=== PATIENT | male | born 1975 | race African-American/Black ===

== ENCOUNTER 2017-03-07 21:22 | Emergency (ER) | payer OTHER ==
[2017-03-07] MEDS ORDERED: predniSONE 20 MG TABLET PO STA (21:45)
[2017-03-07] MEDS ORDERED: KETOROLAC 60 MG/2 ML VIAL IM STA (21:45)
[2017-03-07] MEDS ORDERED: oxyCODONE/ACET 5/325 Prepack 4 PO STA (21:45)
--- NOTE | 2017-03-07 21:47 | ED Physician Documentation ---
PD HPI UPPER EXT INJURY - Stated complaint Stated Complaint: L ARM PAIN - Chief complaint Chief Complaint: Ext Problem - History obtained from History obtained from: Patient - Additonal information Additional information: 42-year-old gentleman with history of mild intermittent rheumatoid arthritis presents with atraumatic left shoulder pain of 2 days duration. It is similar to previous exacerbation of rheumatoid arthritis. He has severe pain with range of motion. There is no fever associated with this. He does feel like his hand and wrist are swollen as well. Review of Systems Constitutional: denies: Fever, Chills, Fatigue, Weight Loss Respiratory: denies: Dyspnea, Cough GI: denies: Abdominal Pain PD PAST MEDICAL HISTORY - Past Medical History Past Medical History: No Musculoskeletal: Osteoarthritis, Rheumatoid arthritis, Gout - Past Surgical History Past Surgical History: Yes Ortho: Knee replacement - Present Medications Home Medications: Ambulatory Orders Medication Instructions Recorded Confirmed Ibuprofen 600 mg PO Q6HR PRN #30 tablet 08/08/15 03/07/17 - Allergies Allergies/Adverse Reactions: Allergies Allergy/AdvReac Type Severity Reaction Status Date / Time No Known Drug Allergies Allergy Verified 03/07/17 21:29 - Social History Does the pt smoke?: No Smoking Status: Never smoker Does the pt drink ETOH?: No Does the pt have substance abuse?: No - Immunizations Immunizations are current?: Yes - POLST Patient has POLST: No PD ED PE NORMAL - Vitals Vital signs reviewed: Yes - General General: Alert and oriented X 3, No acute distress - Neck Neck: Supple, no meningeal sign, No bony TTP - Extremities Extremities: Other (Diffuse tenderness To the left shoulder joint without warmth. No overlying skin changes or redness. He can internally and externally rotate a few degrees without pain but cannot really abduct at all. I do not really see any swelling to the arm per se and he has no tenderness of the hand or wrist.) - Neuro Neuro: Alert and oriented X 3, Normal speech - Psych Psych: Normal mood, Normal affect Results - Vitals Vitals: Vital Signs - 24 hr 03/07/17 21:30 Temperature 36.6 C Heart Rate 98 Respiratory 18 Rate Blood Pressure 176/98 H O2 Saturation 98 Oxygen O2 Source Room air PD MEDICAL DECISION MAKING - ED course ED course: 42-year-old gentleman with an exacerbation of chronic arthritis, there is no evidence of infection and there was no trauma. He requests a Toradol shot along with prednisone taper and some pain medication. Departure - Departure Disposition: 01 Home, Self Care Clinical Impression: Shoulder pain, left Qualifiers: Chronicity: acute Qualified Code(s): M25.512 - Pain in left shoulder Condition: Good Record reviewed to determine appropriate education?: Yes Instructions: Arthritis Rheumatoid Comments: Call your doctor to arrange a follow-up appointment, make the next available appointment. In the interim, return anytime if worse or if new symptoms develop. Your blood pressure was elevated today on check into the emergency department. This does not mean that you have hypertension, it is a common phenomenon to come to the emergency department and have elevated blood pressure. I recommend that she see your primary care physician within the week to have it rechecked when you are feeling better.
[2017-03-07] MEDS ORDERED: KETOROLAC 60 MG/2 ML VIAL ONE (21:54)
[2017-03-07] MEDS ORDERED: oxyCODONE/ACET 5/325 Prepack 4 PO ONE (21:54)
[2017-03-07] MEDS ORDERED: predniSONE 20 MG TABLET ONE (21:54)
[2017-03-07 22:21] VITALS: BP 158/98
== END 2017-03-07 22:21 | disposition home or self-care (01) ==
LOC: ED 21:22
DX: M25.512 Pain in left shoulder (principal); R03.0 Elevated blood-pressure reading, without diagnosis of hypertension; M06.9 Rheumatoid arthritis, unspecified; Z96.659 Presence of unspecified artificial knee joint
CPT/HCPCS: 96372; 99283; J7512

== ENCOUNTER 2017-05-22 06:00 | Emergency (ER) | payer OTHER ==
--- NOTE | 2017-05-22 07:21 | Ultrasound Preliminary Report ---
Exam: US DUPLEX EXT VEINS LEFT IMPRESSION: No evidence for deep venous thrombosis. [facility] SITE ID: [id number]
--- NOTE | 2017-05-22 07:24 | Ultrasound Report ---
EXAM: LEFT LOWER EXTREMITY VENOUS ULTRASOUND EXAM DATE: 05/22/2017 07:13 AM. CLINICAL HISTORY: Left calf pain. COMPARISON: None. TECHNIQUE: Real-time sonographic vascular imaging was performed by the rubber boots and shoes repairer through the lower extremity utilizing both color-flow and Doppler spectral analysis. Multiple outbound sales representative static polina ges were saved for review. FINDINGS: Common Femoral Vein (CFV): Normal. CFV-GSV Junction: Normal. Profunda Femoral Vein (PFV): Normal. Femoral Vein (FV) Prox: Normal. Femoral Vein (FV) Mid: Normal. Femoral Vein (FV) Dist: Normal. Popliteal Vein: Normal. Posterior Tibial Veins: Normal. Peroneal Veins: Normal. Contralateral Side CFV: Normal. Other: None. IMPRESSION: No evidence for deep venous thrombosis. [facility] Referring Provider Line: [phone] SITE ID: [id number]
--- NOTE | 2017-05-22 07:25 | XRAY Preliminary Report ---
Exam: XR ANKLE 3 VIEW RT IMPRESSION: 1. Heel spurs. 2. DJD. [facility] SITE ID: [id number]
--- NOTE | 2017-05-22 07:27 | XRAY Report ---
EXAM: RIGHT ANKLE RADIOGRAPHY EXAM DATE: 05/22/2017 07:14 AM. CLINICAL HISTORY: Right ankle pain. COMPARISON: None. TECHNIQUE: 3 views. FINDINGS: Bones: Achilles tendon heel spur. Plantar heel spur. Loose bodies at the tibial talar joint. No acute fractures or bone lesions. Joints: Joint space narrowing along the posterior talocalcaneal joint. Joint space narrowing along th e distal aspect of the medial and lateral joint space. Accessory ossicles along the medial lateral ma lleolus. Osteophyte along the talonavicular and navicular cuneiform joints. Soft Tissues: soft tissue swelling. IMPRESSION: 1. Heel spurs. 2. DJD. [facility] Referring Provider Line: [phone] SITE ID: [id number]
[2017-05-22] MEDS ORDERED: HYDROcod/ACETAM 5/325 MG TABLET PO STA (07:29)
--- NOTE | 2017-05-22 07:29 | ED Physician Documentation ---
PD HPI LOWER EXT INJURY - Stated complaint Stated Complaint: BILAT LEG/ANKLE PX - Chief complaint Chief Complaint: Ext Problem - History obtained from History obtained from: Patient - History of Present Illness PD HPI LOW EXT INJURY LOCATION: Left, Lower leg Type of injury: Other (No specific injury.) Timing - onset: How many days ago (Onset was 5 or 6 days ago.) Timing - details: Gradual onset, Waxing and waning Worsened by: Other (Weight bearing.) - Additional information Additional information: The patient is a 42-year-old male of large stature, who presents with left lower leg pain that started 5 or 6 days ago and has been waxing and waning since that time. He also complains of right ankle pain that started last night , and is worse with weightbearing. He denies any recent injury. He has noticed slight swelling in his left lower leg. He denies fever or shortness of breath. He has a history of osteoarthritis and rheumatoid arthritis, as well as gout. He has been using Advil without relief. Review of Systems Constitutional: denies: Fever Nose: denies: Congestion Throat: denies: Sore throat Cardiac: denies: Chest pain / pressure Respiratory: denies: Dyspnea, Cough GI: denies: Abdominal Pain, Nausea, Vomiting : denies: Dysuria Skin: denies: Rash Musculoskeletal: reports: Extremity pain. denies: Neck pain, Back pain Neurologic: denies: Focal weakness, Numbness, Headache PD PAST MEDICAL HISTORY - Past Medical History Cardiovascular: None Respiratory: None Neuro: None Endocrine/Autoimmune: None Musculoskeletal: Osteoarthritis, Rheumatoid arthritis, Gout - Past Surgical History Past Surgical History: Yes Ortho: Knee replacement Cardiovascular: Vascular surgery - Present Medications Home Medications: Ambulatory Orders Medication Instructions Recorded Confirmed Ibuprofen 600 mg PO Q6HR PRN #30 tablet 08/08/15 05/22/17 Naproxen [Naprosyn] 500 mg PO BID PRN #30 tablet 05/22/17 - Allergies Allergies/Adverse Reactions: Allergies Allergy/AdvReac Type Severity Reaction Status Date / Time No Known Drug Allergies Allergy Verified 05/22/17 06:06 - Social History Does the pt smoke?: No Smoking Status: Never smoker Does the pt drink ETOH?: No Does the pt have substance abuse?: No - Immunizations Immunizations are current?: Yes - POLST Patient has POLST: No PD ED PE NORMAL - Vitals Vital signs reviewed: Yes (initially hypertensive.) - General General: Alert and oriented X 3, Well developed/nourished - HEENT HEENT: Atraumatic, Pharynx benign - Neck Neck: No adenopathy, No JVD - Cardiac Cardiac: RRR, No murmur - Respiratory Respiratory: No respiratory distress, Clear bilaterally - Abdomen Abdomen: Normal bowel sounds, Soft, Non tender - Back Back: No CVA TTP - Derm Derm: No rash - Extremities Extremities: Other - Neuro Neuro: Alert and oriented X 3, No motor deficit, No sensory deficit Results - Vitals Vitals: Oxygen O2 Source Room air - Rads (name of study) Venous Duplex Left LE Radiology: Prelim report reviewed, See rad report (No evidence for DVT.) Right ankle Radiology: Prelim report reviewed, EMP read contemporaneously, See rad report ( Heel spurs. DJD.) PD MEDICAL DECISION MAKING - ED course Complexity details: reviewed results, re-evaluated patient, considered differential, d/w patient, d/w family ED course: The patient's lower extremity pain is most likely caused by his arthritis. The change in weather may be affecting the inflammatory condition. There is no evidence of bony abnormality on x-ray examination of his right ankle. There is no DVT detected on venous duplex scan of the left lower extremity. Treatment in the emergency department included administration of Vicodin one tablet orally. He is being discharged with prescription for Naprosyn. I discussed with him and his the results of the imaging studies, symptomatic treatment and outpatient follow-up, as well as potentially worrisome signs or symptoms that should prompt reevaluation in the emergency department Departure - Departure Disposition: 01 Home, Self Care Clinical Impression: History of inflammatory arthritis Pain of lower extremity Qualifiers: Laterality: bilateral Qualified Code(s): M79.604 - Pain in right leg Condition: Stable Instructions: ED Arthritis Rheumatoid Follow-Up: Vernon Last MD [Primary Care Provider] - Prescriptions: Naproxen [Naprosyn] 500 mg PO BID PRN #30 tablet PRN Reason: Pain Comments: Keep your legs elevated as much of the time as possible. You can use Naprosyn twice daily as prescribed if needed for pain. Let pain be your guide to activity level. Follow up with your primary physician within 1-2 weeks. Call to schedule an appointment. Return to the emergency department if you develop increasing pain or swelling in your legs, or otherwise worsening symptoms. Discharge Date/Time: 05/22/17 07:50
[2017-05-22] MEDS ORDERED: HYDROcod/ACETAM 5/325 MG TABLET ONE (07:43)
[2017-05-22 07:51] VITALS: BP 171/103
== END 2017-05-22 07:50 | disposition home or self-care (01) ==
LOC: ED 06:00
DX: M25.571 Pain in right ankle and joints of right foot (principal); M79.662 Pain in left lower leg; M06.9 Rheumatoid arthritis, unspecified; M19.90 Unspecified osteoarthritis, unspecified site; M10.9 Gout, unspecified
CPT/HCPCS: 73610; 93971; 99283; A9270

== ENCOUNTER 2017-05-31 05:54 | Emergency (ER) | payer OTHER ==
[2017-05-31 06:07] VITALS: BP 160/107
--- NOTE | 2017-05-31 06:15 | ED Physician Documentation ---
PD HPI ABD PAIN - Stated complaint Stated Complaint: ABDOMINAL PAIN - Chief complaint Chief Complaint: Abd Pain - History obtained from History obtained from: Patient - History of Present Illness Timing - onset: How many days ago (several days) Timing - duration: Days Timing - details: Gradual onset, Waxing and waning Quality: Aching, Dull, Pain Location: Periumbilical Radiation: No: Chest, Lower back, Left flank, Right flank Improved by: Laying still. No: Eating, BM Worsened by: Moving, Palpation. No: Eating, Breathing Associated symptoms: No: Fever, Nausea, Vomiting, Diarrhea, Constipation, Melena Similar symptoms before: Has not had sx before Recently seen: Emergency Dept (he had been having lower leg pain and seen in ED with U/S and labs; no DVT and was Dx with likely arthritis. He felt better after just couple days of Naproxen and minimal pain meds. No recent pains in legs.) Review of Systems Constitutional: denies: Fever, Chills Respiratory: denies: Cough GI: reports: Abdominal Pain. denies: Nausea, Vomiting, Constipation, Diarrhea, Bloody / black stool : denies: Dysuria, Frequency Skin: denies: Rash, Lesions PD PAST MEDICAL HISTORY - Past Medical History Past Medical History: Yes Cardiovascular: None Respiratory: None Neuro: None Endocrine/Autoimmune: None Musculoskeletal: Osteoarthritis, Rheumatoid arthritis, Gout - Past Surgical History Past Surgical History: Yes Ortho: Knee replacement Cardiovascular: Vascular surgery - Present Medications Home Medications: Ambulatory Orders Medication Instructions Recorded Confirmed Ibuprofen 600 mg PO Q6HR PRN #30 tablet 08/08/15 05/22/17 Naproxen [Naprosyn] 500 mg PO BID PRN #30 tablet 05/22/17 - Allergies Allergies/Adverse Reactions: Allergies Allergy/AdvReac Type Severity Reaction Status Date / Time No Known Drug Allergies Allergy Verified 05/31/17 06:07 - Social History Does the pt smoke?: No Smoking Status: Never smoker Does the pt drink ETOH?: No Does the pt have substance abuse?: No - Immunizations Immunizations are current?: Yes - POLST Patient has POLST: No PD ED PE NORMAL - Vitals Vital signs reviewed: Yes - General General: Alert and oriented X 3, No acute distress, Well developed/nourished, Other (very large stature.) - Cardiac Cardiac: RRR, No murmur - Respiratory Respiratory: Clear bilaterally - Abdomen Abdomen: Normal bowel sounds, Non distended, No organomegaly, Other (obese; has tenderness at umbilicus with palpable hernia. Pushing the hernia augments the pain, but the hernia is soft and reducible, also less prominent with him lying down. So easily reducible. ) - Male Male : Deferred - Rectal Rectal: Deferred - Back Back: No CVA TTP - Derm Derm: Normal color, No rash Results - Vitals Vitals: Vital Signs - 24 hr 05/31/17 05:58 Temperature 36.1 C L Heart Rate 92 Respiratory 18 Rate Blood Pressure 160/107 H O2 Saturation 97 Oxygen O2 Source Room air PD MEDICAL DECISION MAKING - ED course Complexity details: considered differential (having umbilical hernia tenderness. No findings/symptoms to suggest need for imaging/testing at this time. Refer for surgical clinic outpatient. Stool softener. Talked to him about symptoms of incarcerated hernia and when to return promptly. ), d/w patient Departure - Departure Disposition: 01 Home, Self Care Clinical Impression: Umbilical pain Umbilical hernia Qualifiers: Obstruction and gangrene presence: without obstruction or gangrene Qualified Code(s): K42.9 - Umbilical hernia without obstruction or gangrene Condition: Stable Record reviewed to determine appropriate education?: Yes Instructions: ED Hernia Inguinal Follow-Up: Vernon Last MD [Primary Care Provider] - Shawn Garcia MD [Provider Admit Priv/Credential] - Comments: Drink lots of fluids. Naproxen or Tylenol if needed for pains. Daily stool softener to ensure less pressure in the abdomen. Avoid heavy lifting. Follow- up with surgery to discuss potential repair of the hernia. Return if that has worsened pain, is hard and tender, has associated nausea or vomiting or bloody stool. Instructions given refer to inguinal hernia but the reasons for returning and cautions are the same and we just do not have particular instructions for umbilical hernia. Discharge Date/Time: 05/31/17 06:35
== END 2017-05-31 06:35 | disposition home or self-care (01) ==
LOC: ED 05:54
DX: K42.9 Umbilical hernia without obstruction or gangrene (principal); Z96.659 Presence of unspecified artificial knee joint
CPT/HCPCS: 99283

== ENCOUNTER 2017-07-16 07:08 | Emergency (ER) | payer OTHER ==
[2017-07-16] MEDS ORDERED: DEXAMETHASONE 10 MG/ML VIAL PO STA (07:45)
[2017-07-16] MEDS ORDERED: KETOROLAC 60 MG/2 ML VIAL IM STA (07:45)
--- NOTE | 2017-07-16 07:47 | ED Physician Documentation ---
History of Present Illness - Stated complaint Stated Complaint: LEFT WRIST SWOLLEN - Chief complaint Chief Complaint: Ext Problem - History obtained from History obtained from: Patient, Family - History of Present Illness Timing: How many days ago (2) - Additonal information Additional information: 42-year-old male has had spontaneous swelling of his left wrist with sharp exquisite pain. He has had similar episodes previously in an ankle and in the thumb. These have lasted a short period of time and resolved. He did have exacerbation of this pain in his left wrist 10 days ago that lasted about 3 days. He has had a recurrence of this beginning 2 days ago. He is in the process of being evaluated for rheumatoid arthritis. He has not been diagnosed with gout previously. He has involvement of a single joint with each of these prior episodes. He does not know of any injury to the wrist prior to the onset of symptoms. He has not been able to sleep. Review of Systems Constitutional: denies: Fever, Chills, Myalgias Eyes: denies: Decreased vision Ears: denies: Ear pain Nose: denies: Congestion Throat: denies: Sore throat Cardiac: denies: Chest pain / pressure Respiratory: denies: Dyspnea, Cough GI: denies: Nausea, Vomiting : denies: Dysuria Skin: denies: Rash Musculoskeletal: reports: Extremity pain, Joint pain, Joint swelling. denies: Neck pain, Back pain Neurologic: denies: Generalized weakness, Focal weakness, Numbness PD PAST MEDICAL HISTORY - Past Medical History Past Medical History: Yes Cardiovascular: Hypertension Respiratory: None Neuro: None Endocrine/Autoimmune: None Musculoskeletal: Osteoarthritis - Past Surgical History Past Surgical History: Yes Ortho: Knee replacement Cardiovascular: Vascular surgery - Present Medications Home Medications: Ambulatory Orders Medication Instructions Recorded Confirmed HYDROcod/ACETAM 5/325 [[place] 5/325] 1 - 2 ea PO Q6H PRN #15 tablet 07/16/17 Indomethacin 25 mg PO Q6HR PRN #30 capsule 07/16/17 Lisinopril/Hydrochlorothiazide 1 tab ORAL DAILY 07/16/17 07/16/17 [Lisinopril-Hctz 20-25 mg Tab] - Allergies Allergies/Adverse Reactions: Allergies Allergy/AdvReac Type Severity Reaction Status Date / Time No Known Drug Allergies Allergy Verified 07/16/17 07:17 - Social History Does the pt smoke?: No Smoking Status: Never smoker Does the pt drink ETOH?: No Does the pt have substance abuse?: No - Immunizations Immunizations are current?: Yes - POLST Patient has POLST: No PD ED PE NORMAL - Vitals Vital signs reviewed: Yes (Hypertensive) - General General: Alert and oriented X 3, No acute distress, Well developed/nourished - HEENT HEENT: Atraumatic, PERRL, EOMI - Respiratory Respiratory: No respiratory distress - Derm Derm: Normal color, Warm and dry, No rash - Extremities Extremities: Other (There is swelling to the left wrist specifically over the dorsum of the wrist joint itself. There is no pain to movement of the thumb with isolation of the thumb or to movement of the fingers with isolation of the hand. Remainder of the patient's joints do not appear affected.) - Neuro Neuro: Alert and oriented X 3, No motor deficit, No sensory deficit, Normal speech Eye Opening: Spontaneous Motor: Obeys Commands Verbal: Oriented GCS Score: 15 - Psych Psych: Normal mood, Normal affect Results - Vitals Vitals: Vital Signs - 24 hr 07/16/17 07:13 Temperature 36 C L Heart Rate 69 Respiratory 18 Rate Blood Pressure 179/97 H O2 Saturation 97 Oxygen O2 Source Room air PD MEDICAL DECISION MAKING - ED course Complexity details: reviewed old records, reviewed results, re-evaluated patient , considered differential, d/w patient ED course: 42-year-old male with a recurrent swelling and pain consistent with acute gouty arthritis. In review of the patient's record he has had similar episodes previously.He has been diagnosed with gout previously. The patient is on hydrochlorothiazide. Departure - Departure Disposition: 01 Home, Self Care Clinical Impression: Gout Qualifiers: Gout site: wrist Gout etiology: drug-induced Chronicity: acute Laterality: left Qualified Code(s): M10.232 - Drug-induced gout, left wrist Condition: Stable Instructions: ED Arthritis Gout, ED Diet Gout Follow-Up: Vernon Last MD [Primary Care Provider] - Prescriptions: Indomethacin 25 mg PO Q6HR PRN #30 capsule PRN Reason: Pain HYDROcod/ACETAM 5/325 [[place] 5/325] 1 - 2 ea PO Q6H PRN #15 tablet PRN Reason: Pain Comments: Today in the emergency department your blood pressure was elevated. I do see you are on some hydrochlorothiazide with by lisinopril. This medicine can exacerbate gout. Talk to Dr. Last about changing this medicine.
[2017-07-16] MEDS ORDERED: CHERRY SYRUP 10 ML UDC PO ONE (07:57)
[2017-07-16 08:10] VITALS: BP 162/98
== END 2017-07-16 08:10 | disposition home or self-care (01) ==
LOC: ED 07:08
DX: M10.2 Drug-induced gout (principal); I10 Essential (primary) hypertension; M19.90 Unspecified osteoarthritis, unspecified site
CPT/HCPCS: 96372; 99283; A9270

== ENCOUNTER 2019-06-09 05:31 | Inpatient (IN) | payer OTHER ==
[2019-06-09] MEDS ORDERED: SODIUM CHLORIDE 0.9% 1,000 ML IV STA (05:54)
--- NOTE | 2019-06-09 06:02 | ED Physician Documentation ---
History of Present Illness - Stated complaint Stated Complaint: WEAK/THIRSTY/MALE - Chief complaint Chief Complaint: Neuro - History obtained from History obtained from: Patient - History of Present Illness Timing: How many weeks ago (1) Pain level max: 0 Pain level now: 0 Improved by: nothing Worsened by: no apparent exacerbating factors Associated symptoms: polyuria, polydipsia, blurry vision, generalized weakness - Additonal information Additional information: c/o 1 week of gradual onset, gradually worsening polyuria, polydipsia. He was evaluated at [facility] 4 days ago and had blood work but has not heard back from them regarding the results. Presents to ED due to ongoing and worsening symptoms, now associated with blurry vision, nausea, generalized weakness Review of Systems Constitutional: reports: Myalgias, Fatigue. denies: Fever, Chills, Sweats Eyes: reports: Other (bilateral blurred vision). denies: Loss of vision, Photophobia Ears: reports: Reviewed and negative Nose: reports: Reviewed and negative Throat: reports: Reviewed and negative Cardiac: reports: Reviewed and negative Respiratory: reports: Reviewed and negative GI: reports: Nausea. denies: Abdominal Pain, Vomiting, Constipation, Diarrhea : reports: Frequency. denies: Dysuria Skin: reports: Reviewed and negative Musculoskeletal: reports: Reviewed and negative Neurologic: reports: Generalized weakness. denies: Focal weakness, Numbness, Headache Endocrine: reports: Polydypsia, Polyuria PD PAST MEDICAL HISTORY - Past Medical History Cardiovascular: Hypertension Respiratory: None Endocrine/Autoimmune: None Musculoskeletal: Osteoarthritis - Past Surgical History Past Surgical History: Yes Ortho: Knee replacement Cardiovascular: Vascular surgery - Present Medications Home Medications: Ambulatory Orders Medication Instructions Recorded Confirmed HYDROcod/ACETAM 5/325 [[place] 5/325] 1 - 2 ea PO Q6H PRN #15 tablet 07/16/17 Indomethacin 25 mg PO Q6HR PRN #30 capsule 07/16/17 Lisinopril/Hydrochlorothiazide 1 tab ORAL DAILY 07/16/17 07/16/17 [Lisinopril-Hctz 20-25 mg Tab] - Allergies Allergies/Adverse Reactions: Allergies Allergy/AdvReac Type Severity Reaction Status Date / Time No Known Drug Allergies Allergy Verified 06/09/19 06:00 - Social History Does the pt smoke?: No Smoking Status: Never smoker Does the pt drink ETOH?: No Does the pt have substance abuse?: No - Immunizations Immunizations are current?: Yes - POLST Patient has POLST: No PD ED PE NORMAL - Vitals Vital signs reviewed: Yes - General General: Alert and oriented X 3, No acute distress, Well developed/nourished - HEENT HEENT: Other (dry mucous membranes) - Neck Neck: Supple, no meningeal sign - Cardiac Cardiac: RRR, No murmur - Respiratory Respiratory: No respiratory distress, Clear bilaterally - Abdomen Abdomen: Soft, Non tender, Non distended - Back Back: No CVA TTP - Derm Derm: Normal color, Warm and dry - Extremities Extremities: No edema - Neuro Neuro: Alert and oriented X 3, 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, Normal speech Results - Vitals Vitals: Vital Signs - 24 hr 06/09/19 06/09/19 06/09/19 05:40 06:27 07:33 Temperature 35.0 C L Heart Rate 102 H 99 94 Respiratory 18 20 20 Rate Blood Pressure 135/75 H 142/79 H 122/94 H O2 Saturation 98 99 96 06/09/19 08:00 Temperature 36.3 C L Heart Rate 100 Respiratory 21 Rate Blood Pressure 172/104 H O2 Saturation 98 Oxygen O2 Source Room air - Labs Labs: Laboratory Tests 06/09/19 06/09/19 06/09/19 06:35 07:25 07:25 WBC 5.8 RBC 5.10 Hgb 14.9 Hct 44.4 MCV 87.1 MCH 29.2 MCHC 33.6 RDW 13.0 Plt Count 281 MPV 12.2 H Neut # (Auto) 3.9 Lymph # (Auto) 1.4 L Alfalfa # (Auto) 0.4 Eos # (Auto) 0.0 Baso # (Auto) 0.0 Absolute Nucleated RBC 0.00 Nucleated RBC % 0.0 VBG pH VBG pCO2 VBG pO2 VBG HCO3 VBG Total CO2 VBG O2 Saturation VBG Base Excess Sodium 121 L Potassium 5.9 H Chloride 82 L Carbon Dioxide 15 L Anion Gap 24.0 H BUN 54 H Creatinine 2.0 H Estimated GFR (MDRD) 44 L Glucose 982 H* Glycated Hemoglobin Estim Average Glucose Calcium 10.2 Total Bilirubin 1.8 H AST 16 ALT 42 Alkaline Phosphatase 79 Total Protein 8.9 H Albumin 4.8 Globulin 4.1 Albumin/Globulin Ratio 1.2 Lipase 56 H Urine Color YELLOW Urine Clarity CLEAR Urine pH 5.5 Ur Specific [place] <=1.005 Urine Protein NEGATIVE Urine Glucose (UA) >=1000 H Urine Ketones 40 H Urine Occult Blood NEGATIVE Urine Nitrite NEGATIVE Urine Bilirubin NEGATIVE Urine Urobilinogen 0.2 (NORMAL) Ur Leukocyte Esterase NEGATIVE Ur Microscopic Review NOT INDICATED Urine Culture Comments NOT INDICATED Serum Ketones SMALL H 06/09/19 06/09/19 07:25 08:00 WBC RBC Hgb Hct MCV MCH MCHC RDW Plt Count MPV Neut # (Auto) Lymph # (Auto) Alfalfa # (Auto) Eos # (Auto) Baso # (Auto) Absolute Nucleated RBC Nucleated RBC % VBG pH 7.256 L VBG pCO2 32.9 L VBG pO2 42.2 VBG HCO3 14.3 L VBG Total CO2 15.3 L VBG O2 Saturation 74.8 VBG Base Excess -11.6 L Sodium Potassium Chloride Carbon Dioxide Anion Gap BUN Creatinine Estimated GFR (MDRD) Glucose Glycated Hemoglobin 12.7 H Estim Average Glucose 318 H Calcium Total Bilirubin AST ALT Alkaline Phosphatase Total Protein Albumin Globulin Albumin/Globulin Ratio Lipase Urine Color Urine Clarity Urine pH Ur Specific [place] Urine Protein Urine Glucose (UA) Urine Ketones Urine Occult Blood Urine Nitrite Urine Bilirubin Urine Urobilinogen Ur Leukocyte Esterase Ur Microscopic Review Urine Culture Comments Serum Ketones - Rads (name of study) chest xray Radiology: Prelim report reviewed, See rad report Procedures - Central Line Central Line Preparation: Consent Obtained, Ultrasound used, Sterile prep and drape Central line location: Right IJ Central line type: Triple lumen Central line aftercare: Chlorhexidine disc placed, Secured, Placement confirmed, No pneumothorax, No complications, Pt tolerated well PD MEDICAL DECISION MAKING - ED course Complexity details: reviewed results, re-evaluated patient, considered differential, d/w patient, d/w family Departure - Departure Disposition: 66 [facility] DC/Xfer Clinical Impression: Diabetic ketoacidosis Qualifiers: Diabetes mellitus type: other specified (including RADHA) Diabetes mellitus complication detail: without coma Qualified Code(s): E13.10 - Other specified diabetes mellitus with ketoacidosis without coma Condition: Stable
[2019-06-09 06:53] LABS: BILIRUBIN,URINE NEGATIVE (NEGATIVE); CLARITY,URINE CLEAR (CLEAR); GLUCOSE, URINE (UA) >=1000 mg/dL (NEGATIVE); KETONES,URINE (UA) 40 mg/dL (NEGATIVE); LEUKOCYTE ESTERASE, URINE NEGATIVE (NEGATIVE); NITRITE,URINE NEGATIVE (NEGATIVE); OCCULT BLOOD,URINE NEGATIVE (NEGATIVE); PH,URINE 5.5 PH (5.0-7.5); PROTEIN,URINE NEGATIVE (NEGATIVE); UROBILINOGEN,URINE 0.2 (NORMAL) E.U./dL (NORMAL)
[2019-06-09 07:40] LABS: BASOPHILS % (AUTO) 0.2 %; EOSINOPHILS % (AUTO) 0.3 %; HGB - HEMOGLOBIN 14.9 g/dL (14.0-18.0); LYMPHOCYTES # (AUTO) 1.4 10^3/uL (1.5-3.5); LYMPHOCYTES % (AUTO) 24.3 %; MEAN CORPUSCULAR HEMOGLOBIN 29.2 pg (27.0-31.0); MEAN CORPUSCULAR HGB CONC 33.6 g/dL (32.0-36.0); MEAN CORPUSCULAR VOLUME 87.1 fL (80.0-94.0); MEAN PLATELET VOLUME 12.2 fL (7.4-11.4); MONOCYTES # (AUTO) 0.4 10^3/uL (0.0-1.0); MONOCYTES % (AUTO) 6.4 %; NEUTROPHILS # (AUTO) 3.9 10^3/uL (1.5-6.6); NEUTROPHILS % (AUTO) 68.3 %; PLT - PLATELET COUNT 281 10^3/uL (130-450); WHITE BLOOD COUNT 5.8 x10^3/uL (4.8-10.8)
--- NOTE | 2019-06-09 07:55 | XRAY Report ---
Reason: central line placement Procedure Date: 06/09/2019 Accession Number: [id number] / [id number] Procedure: XR - Chest for Line Placement CPT Code: Final Report FULL RESULT: EXAM: CHEST RADIOGRAPHY EXAM DATE: 06/09/2019 07:45 AM. CLINICAL HISTORY: Central line placement. COMPARISON: None. TECHNIQUE: 1 view. FINDINGS: Support apparatus: Right IJ approach central venous catheter with tip over the upper SVC approximately 6.5 cm above the expected location of the superior cavoatrial junction. Lungs/Pleura: No focal opacities evident. No pleural effusion. No visible pneumothorax. Mediastinum: Within exam limitations, the cardiomediastinal contour is normal. Other: None. IMPRESSION: 1. Right IJ approach central venous catheter with tip over the upper SVC approximately 6.5 cm above the expected location of the superior cava atrial junction. Consider advancing. 2. No acute cardiopulmonary process. RADIA
[2019-06-09 07:56] LABS: KETONES, SERUM (ACETEST) SMALL (NEGATIVE)
[2019-06-09 08:08] LABS: VBG BASE EXCESS -11.6 mmol/L (-2 - +2); VBG PCO2 32.9 mmHg (41-51); VBG PH 7.256 (7.31-7.41); VBG PO2 42.2 mmHg (25-47); VBG TOTAL CO2 15.3 mmol/L (24-29)
[2019-06-09 08:19] LABS: ALBUMIN 4.8 g/dL (3.2-5.5); ALBUMIN/GLOBULIN RATIO 1.2 (1.0-2.2); ALKALINE PHOSPHATASE 79 IU/L (42-121); ALT ALANINE AMINOTRANSFERASE 42 IU/L (10-60); AST ASPARTATE AMINOTRANSFERASE 16 IU/L (10-42); BILIRUBIN,TOTAL 1.8 mg/dL (0.2-1.0); BUN - BLOOD UREA NITROGEN 54 mg/dL (6-20); CALCIUM 10.2 mg/dL (8.5-10.3); CARBON DIOXIDE - CO2 15 mmol/L (21-32); CHLORIDE 82 mmol/L (101-111); GFR - MDRD 44 (>89); LIPASE 56 U/L (22-51); SODIUM 121 mmol/L (135-145); TOTAL PROTEIN 8.9 g/dL (6.7-8.2)
[2019-06-09 08:21] LABS: GLUCOSE 982 mg/dL (70-100)
[2019-06-09] MEDS ORDERED: ONDANSETRON ODT 4 MG TABLET TL PRN (08:24)
[2019-06-09] MEDS ORDERED: ONDANSETRON 4 MG/2 ML VIAL IVP PRN (08:24)
[2019-06-09] MEDS ORDERED: oxyCODONE 5 MG TABLET PO PRN (08:24)
[2019-06-09] MEDS ORDERED: ACETAMINOPHEN 325 MG TABLET PO PRN (08:24)
[2019-06-09] MEDS ORDERED: INSULIN REGULAR HUMAN 100 UNIT/1 ML 10 ML MDV IVP STA (08:25)
[2019-06-09 08:40] LABS: HB2 TOTAL 14.9 g/dL; HEMOGLOBIN A1C 1.72 g/dL; HEMOGLOBIN A1C % 12.7 % (4.6-6.2)
[2019-06-09 09:20] LABS: CALCIUM 10.5 mg/dL (8.5-10.3); MAGNESIUM 3.1 mg/dL (1.7-2.8)
--- NOTE | 2019-06-09 09:26 | ED Physician Documentation ---
ED Addendum - Addendum Addendum: 06/09/19 09:26 Nursing staff notified me of critical results of potassium 6.0 and glucose 931. The patient's being admitted with DKA. I have ordered an EKG. 06/09/19 09:27 He was given 10 units of insulin IV. The patient Is already admitted to the medical service. We will communicate these results with them. 06/09/19 10:04 EKG: Sinus tachycardia, rate 101. Narrow QRS, t wave inversion II, III aVF. No peaked t waves.
[2019-06-09] MEDS: INSULIN REGULAR HUMAN 100 UNIT in SODIUM CHLORIDE 0.9% 100ML 99 ML IV SCH ×3 (09:32→20:19)
[2019-06-09 10:09] LABS: MAGNESIUM 3.5 mg/dL (1.7-2.8)
[2019-06-09] MEDS: SODIUM CHLORIDE 0.9% 1,000 ML IV SCH ×2 (10:53→18:13)
[2019-06-09 11:41] LABS: VBG PCO2 35.1 mmHg (41-51); VBG PH 7.272 (7.31-7.41); VBG PO2 35.2 mmHg (25-47); VBG TOTAL CO2 16.9 mmol/L (24-29)
[2019-06-09] MEDS: SODIUM CHLORIDE FLUSH 0.9% 10 ML SYRINGE IVP SCH ×3 (11:53→16:23)
[2019-06-09 11:56] LABS: CALCIUM 10.3 mg/dL (8.5-10.3); CREATININE 1.9 mg/dL (0.6-1.2); MAGNESIUM 3.4 mg/dL (1.7-2.8)
[2019-06-09] MEDS ORDERED: POTASSIUM CHLOR 10 MEQ/100 ML 10 MEQ/100 ML BAG IV ONE ×4 (12:12→21:35)
[2019-06-09] MEDS: SODIUM CHLORIDE FLUSH 0.9% 10 ML SYRINGE IVP PRN ×2 (12:40→21:27)
[2019-06-09] MEDS: ENOXAPARIN 40 MG/0.4 ML SYRINGE SUBQ SCH (12:53)
[2019-06-09 14:57] LABS: CALCIUM 9.8 mg/dL (8.5-10.3); CREATININE 1.9 mg/dL (0.6-1.2)
--- NOTE | 2019-06-09 16:14 | HISTORY & PHYSICAL EXAMINATION ---
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 He had gone to see his primary doctor on Monday regarding this. Labs were drawn and he has not heard anything back. His symptoms were continuing to worsen, and he began to develop weakness and blurred vision so he decided to come to the ED. On arrival, blood glucose was 982. A VBG was checked and resulted as follows: pH: 7.27, CO2: 35 and HCO3: 15.8. He also had an anion gap of 24, a sodium of 121 and a creatinine of 2. He was admitted for diabetic ketoacidosis from a new diagnosis of diabetes mellitus type 2. 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 Prakash's mother still lives in [place] (his hometown). He has never met his father and knows nothing about him. He does not have siblings that he is aware of. He does have one child who has asthma. 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 He and his met in [place], [place] before he was stationed in [facility] nd they moved to [place] in 2004. Together they have 4 children, 3 of which are adopted from his 's prior marriage. 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 - Substance History Use: Uses substance without health or social issues: NONE Abuse: Recurrent use of substance despite neg consequences: NONE Dependence: Experiences withdrawal or developed tolerances: NONE - POLST Patient has POLST: No POLST Status: Full Code Meds/Allgy - Home Medications Home Medications: Ambulatory Orders Medication Instructions Recorded Confirmed HYDROcod/ACETAM 5/325 [[place] 5/325] 1 - 2 ea PO Q6H PRN #15 tablet 07/16/17 Indomethacin 25 mg PO Q6HR PRN #30 capsule 07/16/17 Lisinopril/Hydrochlorothiazide 1 tab ORAL DAILY 07/16/17 07/16/17 [Lisinopril-Hctz 20-25 mg Tab] - Allergies Allergies/Adverse Reactions: Allergies Allergy/AdvReac Type Severity Reaction Status Date / Time No Known Drug Allergies Allergy Verified 06/09/19 06:00 Review of Systems - Constitutional Constitutional: reports: Fatigue, Weakness, Poor appetite. denies: Fever, Chills, Malaise, Diaphoresis, Night sweats, Weight gain - Eyes Eyes: reports: Blurred vision. denies: Pain, Irritation, Amaurosis, Spots in vision, Field loss, Vision loss, Dipolpia - Ears, Nose & Throat Ears, Nose & Throat: denies: Ear pain, Hearing loss, Hearing aids, Tinnitus, Vertigo, Nasal pain, Nasal discharge, Nosebleeds, Nasal obstruction, Nasal congestion, Postnasal drainage, Dentures, Sore throat, Hoarseness, Mouth lesions, Bleeding gums, Dental decay - Cardiovascular Cariovascular: reports: Lightheadedness (This morning in the ED). denies: Irregular heart rate, Palpitations, Chest pain, Edema, Exertional dyspnea, Decr. exercise tolerance, Orthopnea - Respiratory Respiratory: denies: Cough, Sputum production, Wheezing, Hemoptysis, Orthopnea, SOB at rest, SOB with exertion, Apnea, Stridor, Pleuritic pain - Gastrointestinal Gastrointestinal: reports: Abdominal pain (Worse yesterday. On and off today.), Nausea (On and off over the course of a week), Other (Obese abdomen). denies: Abdominal distention, Constipation, Diarrhea, Rectal bleeding, Black stools, Bloody stools, Vomiting, Bile emesis, Uri blood emesis, Coffee grounds emesis, Reflux/heartburn - Genitourinary Genitourinary: reports: Frequency, Other (Polydipsia). denies: Hematuria, Incontinence, Flank pain - Musculoskeletal Musculoskeletal: reports: Joint pain (OA). denies: Muscle pain, Back pain, Muscle aches, Stiffness, Limited range of motion, Muscle weakness - Integumentary Integumentary: denies: Rash, Pruritis, Lesions, Dryness, Lumps, Acne, Pigment changes, Nail changes, Hair changes - Neurological Neurological: reports: General weakness. denies: Focal weakness, Headache, Dizziness, Numbness, Memory problems, Pre-existing deficit, Abnormal gait, Seizures, Incoordination, Slurred speech - Psychiatric Psychiatric: denies: Depression, Anxiety, Suicidal, Delusions, Hallucinations, Homicidal - Endocrine Endocrine: reports: Polyuria, Polydypsia - Hematologic/Lymphatic Hematologic/Lymphatic: denies: Anemia, Bruising, Petechiae, Blood clots, Lymphadenopathy, Bleeding tendencies - All Other Systems All Other Systems: reports: Reviewed and negative Prior Level of Functionality: Prior to this, Mr. 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 Exam - Vital Signs Reviewed Vital Signs: Yes Vital Signs: Vital Signs x48h Temp Pulse Pulse Resp BP BP Pulse Ox 06/09/19 15:00 99 17 174/94 H 99 06/09/19 14:00 104 H 17 156/90 H 99 06/09/19 13:00 102 H 23 134/72 H 99 06/09/19 12:00 36.4 C L 105 H 19 134/73 H 95 06/09/19 11:00 108 H 18 97/70 98 06/09/19 10:45 36.4 C L 109 H 12 92/77 100 06/09/19 10:00 107 H 14 151/72 H 98 06/09/19 09:53 36.6 C 104 H 25 H 139/87 H 97 06/09/19 08:30 106 H 14 187/93 H 98 06/09/19 08:00 36.3 C L 100 21 172/104 H 98 - Physical Exam General Appearance: positive: No acute distress, Mild distress (Tachypneic (low 20s).), Lethargic, Other (6'5" black male, well nourished, well developed at 145Kg.) Eyes Bilateral: positive: Normal inspection, No lid inflammation, Conjunctivae nml, No scleral icterus ENT: positive: ENT inspection nml, Pharynx nml, Dry mucous membranes. negative: Purulent nasal drainage, Pharyngeal erythema, Oral lesions Neck: positive: Nml inspection, Thyroid nml, No JVD, Trachea midline. negative: Stiff neck, Kernig's sign, Carotid bruit, Swelling/bruising, Tracheal deviation Respiratory: positive: Chest non-tender, Breath sounds nml, Other (Mildly tachypneic) Cardiovascular: positive: No murmur, No gallop, Tachycardia. negative: JVD present, Systolic murmur, Diastolic murmur, Gallop/S3, Gallop/S4, Friction rub, Decreased pulse(s), Crepitus Peripheral Pulses: positive: 2+ Abdomen: positive: Non-tender, Nml bowel sounds, Other (Obese abdomen). negative: Tenderness, Guarding, Rebound Rectal: positive: Non-tender Back: positive: Nml inspection, CVA tenderness (R), CVA tenderness (L) Skin: positive: Color nml, No rash, Warm, Dry, Cyanosis. negative: Diaphoresis, Pallor, Skin rash, Decubitus, Laceration (cm), Puncture wound Extremities: positive: Non-tender, Full ROM, Nml appearance, No pedal edema. negative: Pedal edema, Calf tenderness, Joint swelling Neurologic/Psychiatric: positive: Oriented x3, CN's nml (2-12), Motor nml, Sensa tion nml, Depressed mood/affect (Pt seems to be withdrawn, but he has not bounced back yet so this could be a result of his current state). negative: Sensory loss, Facial droop, Slurred/abnml speech Conclusion/Plan - Problem List (1) Diabetic ketoacidosis Conclusion/Plan: Presented for blurred vision and weakness along with progressively worsening polydipsia and polyuria. Blood glucose on arrival was 982 > 704 > 537. His VBG resulted as follows: pH: 7.27, pCO2: 35.1, HCO3: 15.8. Was started on treatment for DKA. Checking CMP Q4h: anion gap 24 > 22 > 19, sodium 121 > 130 > 129, potassium 5.9 > 4.5 > 4.3. An EKG was checked because of hyperkalemia and showed sinus tach, R axis deviation and borderline ST elevation. His corrected sodium is now 136 and K is WNL . Will continue to follow DKA protocol. -Follow CMP Q4H until stable. -Neuro checks -Remain NPO (can drink water, sugar free beverages, ice chips meds) until off of insulin gtt Qualifiers: Diabetes mellitus type: type 2 Diabetes mellitus complication detail: without coma Qualified Code(s): E11.10 - Type 2 diabetes mellitus with ketoacidosis without coma (2) Newly diagnosed diabetes Conclusion/Plan: AIC on admit was 12.7%. His mother has DM II as well. His was hoping that he would be able to eventually take pills to control his sugar, but given his obesity along with such a high A1C, he is unfortunately not a candidate. His feels overwhelmed about the new diagnosis, but the pt doesn't seemed to be phased by this. Reassured both the patient and the that they will receive diabetic education before discharging. -CMP Q4H -Transition to short- and long- term injections once stable and off gtt -Diabetic education (3) Acute kidney injury Conclusion/Plan: Secondary to dehydration and DKA. BUN/creatinine: 54/2 > 51/1.9 > 5.1/1.9. Receiving aggressive hydration. -Continue IVF -Monitor CMP Q4h (4) Hypertension Conclusion/Plan: Takes Lisinopril/HCTZ at home. Holding now due to ANTOLIN -Will resume as needed Qualifiers: Hypertension type: essential hypertension Qualified Code(s): I10 - Essential (primary) hypertension (5) Hyperlipidemia Conclusion/Plan: Was taking Atorvastatin up until a few weeks ago. He stopped because it was making his skin dry. His ASCVD risk is now especially high with his new dx of D M. Will check lipid panel and have him f/u w/ PCP after D/C -Check lipid panel when sugar is controlled Qualifiers: Hyperlipidemia type: unspecified Qualified Code(s): E78.5 - Hyperlipidemia, unspecified (6) Personal history of osteoarthritis Conclusion/Plan: Takes Indomethacin at home. Holding for now. -Continue PRN Oxy and APAP - Lab Results Fish Bones: 06/09/19 07:25 12/01/19 16:40 - EKG Results EKG Interpreted Independently: No Core Measures - Anticipated LOS I expect patient to be DC'd or transferred within 96 hours.: Yes - DVT/VTE - Prophylaxis VTE/DVT Device ordered at admit?: Yes
[2019-06-09 16:53] LABS: CALCIUM 9.7 mg/dL (8.5-10.3); CREATININE 1.8 mg/dL (0.6-1.2)
[2019-06-09 18:53] LABS: CALCIUM 9.7 mg/dL (8.5-10.3); CREATININE 1.7 mg/dL (0.6-1.2)
[2019-06-09] MEDS: DEXTROSE 5%-0.45% NACL 1,000 ML IV SCH ×2 (19:49→21:27)
[2019-06-09 21:22] LABS: CALCIUM 9.7 mg/dL (8.5-10.3); CREATININE 1.4 mg/dL (0.6-1.2)
[2019-06-10] MEDS: SODIUM CHLORIDE FLUSH 0.9% 10 ML SYRINGE IVP PRN ×2 (00:35)
[2019-06-10 00:48] LABS: CALCIUM 9.5 mg/dL (8.5-10.3); CREATININE 1.3 mg/dL (0.6-1.2)
[2019-06-10] MEDS: SODIUM CHLORIDE 0.9% 1,000 ML IV SCH ×3 (01:11→17:13)
[2019-06-10] MEDS: POTASSIUM CHLOR 10 MEQ/100 ML 10 MEQ/100 ML BAG IV SCH ×4 (01:18→05:45)
[2019-06-10] MEDS ORDERED: SODIUM CHLORIDE 0.9% 100ML 100 ML IV ONE (01:20)
[2019-06-10] MEDS: INSULIN REGULAR HUMAN 100 UNIT in SODIUM CHLORIDE 0.9% 100ML 99 ML IV SCH (02:52)
[2019-06-10 05:27] LABS: VBG BASE EXCESS -1.5 mmol/L (-2 - +2); VBG PCO2 44.8 mmHg (41-51); VBG PH 7.352 (7.31-7.41); VBG PO2 57.2 mmHg (25-47); VBG TOTAL CO2 25.7 mmol/L (24-29)
[2019-06-10 05:32] LABS: BASOPHILS % (AUTO) 0.6 %; EOSINOPHILS # (AUTO) 0.2 10^3/uL (0.0-0.7); EOSINOPHILS % (AUTO) 2.4 %; HGB - HEMOGLOBIN 12.7 g/dL (14.0-18.0); LYMPHOCYTES # (AUTO) 2.6 10^3/uL (1.5-3.5); LYMPHOCYTES % (AUTO) 39.8 %; MEAN CORPUSCULAR HGB CONC 33.3 g/dL (32.0-36.0); MEAN CORPUSCULAR VOLUME 83.9 fL (80.0-94.0); MEAN PLATELET VOLUME 11.5 fL (7.4-11.4); MONOCYTES # (AUTO) 0.7 10^3/uL (0.0-1.0); MONOCYTES % (AUTO) 10.9 %; PLT - PLATELET COUNT 225 10^3/uL (130-450); RED BLOOD COUNT 4.54 10^6/uL (4.70-6.10); RED CELL DISTRIBUTION WIDTH 12.7 % (12.0-15.0); WHITE BLOOD COUNT 6.6 x10^3/uL (4.8-10.8)
[2019-06-10 05:36] LABS: KETONES, SERUM (ACETEST) NEGATIVE (NEGATIVE)
[2019-06-10 05:40] LABS: BUN - BLOOD UREA NITROGEN 39 mg/dL (6-20); CALCIUM 9.5 mg/dL (8.5-10.3); CARBON DIOXIDE - CO2 25 mmol/L (21-32); CHLORIDE 100 mmol/L (101-111); CREATININE 1.2 mg/dL (0.6-1.2); GFR - MDRD 79 (>89); GLUCOSE 132 mg/dL (70-100); MAGNESIUM 2.5 mg/dL (1.7-2.8); PHOSPHORUS 2.8 mg/dL (2.5-4.6); SODIUM 134 mmol/L (135-145)
[2019-06-10] MEDS: DEXTROSE 5%-0.45% NACL 1,000 ML IV SCH ×2 (05:42→17:13)
[2019-06-10] MEDS ORDERED: POTASSIUM CHLORIDE 20 MEQ TABLET PO ONE (05:50)
--- NOTE | 2019-06-10 08:13 | PROVIDER PROGRESS NOTE ---
Subjective - Prog Note Date Prog Note Date: 06/10/19 Prog Note Time: 09:30 - Subjective Subjective: he's tired. was sitting upright in chair this morning, asleep as he had his hand held device on with football . wants to get out of here. Current Medications - Current Medications Current Medications: Active Medications Acetaminophen (Tylenol) 650 mg PO Q4HR PRN PRN Reason: Pain 1 to 4 Docusate Sodium (Colace 250mg Capsule) 250 - 500 mg PO DAILY [facility] Last Admin: 06/10/19 11:43 Dose: 250 mg Enoxaparin Sodium (Lovenox) 40 mg SUBQ DAILY [facility] Last Admin: 06/10/19 08:36 Dose: 40 mg Dextrose/Sodium Chloride (D5.45ns) 1,000 mls @ 125 mls/hr IV .Q8H [facility] Last Infusion: 06/10/19 11:36 Dose: 0 mls/hr Sodium Chloride (Normal Saline 0.9%) 1,000 mls @ 125 mls/hr IV .Q8H [facility] Last Admin: 06/10/19 09:24 Dose: Not Given Insulin Aspart (Novolog) 2 - 10 unit SUBQ 0800,1200,1700,2100 [facility]; Protocol Last Admin: 06/10/19 11:44 Dose: 10 unit Insulin Aspart (Novolog) 5 unit SUBQ TIDWM [facility]; Protocol Last Admin: 06/10/19 11:43 Dose: 5 unit Insulin Glargine (Lantus Solostar) 30 unit SUBQ QDBREAKFAST [facility] Last Admin: 06/10/19 08:31 Dose: 30 unit Lisinopril (Zestril) 20 mg PO DAILY [facility] Last Admin: 06/10/19 10:02 Dose: 20 mg Ondansetron HCl (Zofran Inj) 4 mg IVP Q6HR PRN PRN Reason: Nausea / Vomiting Last Admin: 06/09/19 16:21 Dose: 4 mg Ondansetron HCl (Zofran Odt) 4 mg TL Q6HR PRN PRN Reason: Nausea / Vomiting Oxycodone HCl (Roxicodone) 5 mg PO Q4HR PRN PRN Reason: Pain 5 to 7 Polyethylene Glycol (Miralax) 17 gm PO DAILY [facility] Last Admin: 06/10/19 11:43 Dose: 17 gm Sodium Chloride (Normal Saline Flush 0.9%) 10 ml IVP PRN PRN PRN Reason: NEEDED PER PROVIDER ORDERS Last Admin: 06/10/19 00:35 Dose: 10 ml Sodium Chloride (Normal Saline Flush 0.9%) 10 ml IVP 0100,0900,1700 DAISY Last Admin: 06/10/19 08:36 Dose: 10 ml Sodium Chloride (Normal Saline Flush 0.9%) 20 ml IVP PRN PRN PRN Reason: After Blood Draw Last Admin: 06/10/19 00:35 Dose: 20 ml Witch Eryn/Glycerin (Tucks) 1 pad TOP PRN PRN PRN Reason: ITCHING Losartan/Hydrochlorothiazide [Losartan-Hctz 100-12.5 mg Tab] 1 tab PO DAILY 06/10/19 Terbinafine [Lamisil] 250 mg PO DAILY 06/10/19 Objective - Vital Signs/Intake & Output Reviewed Vital Signs: Yes Vital Signs: Vital Signs Pulse Resp BP 06/10/19 07:00 82 18 133/75 H 06/10/19 06:00 95 21 136/78 H 06/10/19 05:00 87 18 128/78 Intake & Output: Intake & Output 06/07/19 06/08/19 06/09/19 06/10/19 23:59 23:59 23:59 23:59 Intake Total 3541.993 3149.466 Output Total 2475 700 Balance 4934.337 2389.466 - Objective General Appearance: positive: No acute distress, Other (sleepy and tired but appropriate) Eyes Bilateral: positive: PERRL ENT: positive: Dry mucous membranes Neck: positive: No JVD. negative: Stiff neck, Carotid bruit Respiratory: positive: Chest non-tender. negative: Wheezes, Rales, Rhonchi Cardiovascular: positive: Regular rate & rhythm. negative: Gallop/S4, Friction rub Abdomen: positive: Non-tender, No organomegaly (but he has a large panus and difficult to assess), Nml bowel sounds, No distention Skin: positive: Warm, Dry Extremities: positive: Full ROM Neurologic/Psychiatric: positive: Oriented x3, CN's nml (2-12), Motor nml - Lab Results Fish Bones: 06/10/19 05:00 06/10/19 05:00 Other Labs: Lab Results x24hrs 06/10/19 06/10/19 06/10/19 Range/Units 05:00 05:00 05:00 WBC 6.6 (4.8-10.8) x10^3/uL RBC 4.54 L (4.70-6.10) 10^6/uL Hgb 12.7 L (14.0-18.0) g/dL Hct 38.1 L (42.0-52.0) % MCV 83.9 (80.0-94.0) fL MCH 28.0 (27.0-31.0) pg MCHC 33.3 (32.0-36.0) g/dL RDW 12.7 (12.0-15.0) % Plt Count 225 (130-450) 10^3/uL MPV 11.5 H (7.4-11.4) fL Neut # (Auto) 3.0 (1.5-6.6) 10^3/uL Lymph # (Auto) 2.6 (1.5-3.5) 10^3/uL Wirt # (Auto) 0.7 (0.0-1.0) 10^3/uL Eos # (Auto) 0.2 (0.0-0.7) 10^3/uL Baso # (Auto) 0.0 (0.0-0.1) 10^3/uL Absolute Nucleated RBC 0.00 x10^3/uL Nucleated RBC % 0.0 /100WBC VBG pH 7.352 (7.31-7.41) VBG pCO2 44.8 (41-51) mmHg VBG pO2 57.2 H (25-47) mmHg VBG HCO3 24.3 (23-28) mmol/L VBG Total CO2 25.7 (24-29) mmol/L VBG O2 Saturation 89.7 H (60-80) % VBG Base Excess -1.5 (-2 - +2) mmol/L Sodium 134 L (135-145) mmol/L Potassium 3.4 L (3.5-5.0) mmol/L Chloride 100 L (101-111) mmol/L Carbon Dioxide 25 (21-32) mmol/L Anion Gap 9.0 (6-13) BUN 39 H (6-20) mg/dL Creatinine 1.2 (0.6-1.2) mg/dL Estimated GFR (MDRD) 79 L (>89) Glucose 132 H (70-100) mg/dL POC Whole Bld Glucose (70 - 100) mg/dL Glycated Hemoglobin (4.6-6.2) % Estim Average Glucose (70-100) Calcium 9.5 (8.5-10.3) mg/dL Phosphorus 2.8 (2.5-4.6) mg/dL Magnesium 2.5 (1.7-2.8) mg/dL Total Bilirubin (0.2-1.0) mg/dL AST (10-42) IU/L ALT (10-60) IU/L Alkaline Phosphatase (42-121) IU/L Total Protein (6.7-8.2) g/dL Albumin (3.2-5.5) g/dL Globulin (2.1-4.2) g/dL Albumin/Globulin Ratio (1.0-2.2) Lipase (22-51) U/L Nasal Screen MRSA (PCR) (NEGATIVE) Serum Ketones NEGATIVE (NEGATIVE) 06/10/19 06/10/19 06/09/19 Range/Units 03:15 00:30 21:00 WBC (4.8-10.8) x10^3/uL RBC (4.70-6.10) 10^6/uL Hgb (14.0-18.0) g/dL Hct (42.0-52.0) % MCV (80.0-94.0) fL MCH (27.0-31.0) pg MCHC (32.0-36.0) g/dL RDW (12.0-15.0) % Plt Count (130-450) 10^3/uL MPV (7.4-11.4) fL Neut # (Auto) (1.5-6.6) 10^3/uL Lymph # (Auto) (1.5-3.5) 10^3/uL Wirt # (Auto) (0.0-1.0) 10^3/uL Eos # (Auto) (0.0-0.7) 10^3/uL Baso # (Auto) (0.0-0.1) 10^3/uL Absolute Nucleated RBC x10^3/uL Nucleated RBC % /100WBC VBG pH (7.31-7.41) VBG pCO2 (41-51) mmHg VBG pO2 (25-47) mmHg VBG HCO3 (23-28) mmol/L VBG Total CO2 (24-29) mmol/L VBG O2 Saturation (60-80) % VBG Base Excess (-2 - +2) mmol/L Sodium 135 (135-145) mmol/L Potassium 3.6 3.7 (3.5-5.0) mmol/L Chloride 100 L (101-111) mmol/L Carbon Dioxide 25 (21-32) mmol/L Anion Gap 10.0 (6-13) BUN 42 H (6-20) mg/dL Creatinine 1.3 H (0.6-1.2) mg/dL Estimated GFR (MDRD) 72 L (>89) Glucose 172 H (70-100) mg/dL POC Whole Bld Glucose (70 - 100) mg/dL Glycated Hemoglobin (4.6-6.2) % Estim Average Glucose (70-100) Calcium 9.5 (8.5-10.3) mg/dL Phosphorus (2.5-4.6) mg/dL Magnesium 3.1 H (1.7-2.8) mg/dL Total Bilirubin (0.2-1.0) mg/dL AST (10-42) IU/L ALT (10-60) IU/L Alkaline Phosphatase (42-121) IU/L Total Protein (6.7-8.2) g/dL Albumin (3.2-5.5) g/dL Globulin (2.1-4.2) g/dL Albumin/Globulin Ratio (1.0-2.2) Lipase (22-51) U/L Nasal Screen MRSA (PCR) (NEGATIVE) Serum Ketones (NEGATIVE) 06/09/19 06/09/19 06/09/19 Range/Units 21:00 18:39 16:51 WBC (4.8-10.8) x10^3/uL RBC (4.70-6.10) 10^6/uL Hgb (14.0-18.0) g/dL Hct (42.0-52.0) % MCV (80.0-94.0) fL MCH (27.0-31.0) pg MCHC (32.0-36.0) g/dL RDW (12.0-15.0) % Plt Count (130-450) 10^3/uL MPV (7.4-11.4) fL Neut # (Auto) (1.5-6.6) 10^3/uL Lymph # (Auto) (1.5-3.5) 10^3/uL Wirt # (Auto) (0.0-1.0) 10^3/uL Eos # (Auto) (0.0-0.7) 10^3/uL Baso # (Auto) (0.0-0.1) 10^3/uL Absolute Nucleated RBC x10^3/uL Nucleated RBC % /100WBC VBG pH (7.31-7.41) VBG pCO2 (41-51) mmHg VBG pO2 (25-47) mmHg VBG HCO3 (23-28) mmol/L VBG Total CO2 (24-29) mmol/L VBG O2 Saturation (60-80) % VBG Base Excess (-2 - +2) mmol/L Sodium 133 L 132 L (135-145) mmol/L Potassium 3.6 4.0 (3.5-5.0) mmol/L Chloride 97 L 96 L (101-111) mmol/L Carbon Dioxide 24 23 (21-32) mmol/L Anion Gap 12.0 13.0 (6-13) BUN 45 H 49 H (6-20) mg/dL Creatinine 1.4 H 1.7 H (0.6-1.2) mg/dL Estimated GFR (MDRD) 66 L 53 L (>89) Glucose 185 H 281 H (70-100) mg/dL POC Whole Bld Glucose 416 H (70 - 100) mg/dL Glycated Hemoglobin (4.6-6.2) % Estim Average Glucose (70-100) Calcium 9.7 9.7 (8.5-10.3) mg/dL Phosphorus (2.5-4.6) mg/dL Magnesium (1.7-2.8) mg/dL Total Bilirubin (0.2-1.0) mg/dL AST (10-42) IU/L ALT (10-60) IU/L Alkaline Phosphatase (42-121) IU/L Total Protein (6.7-8.2) g/dL Albumin (3.2-5.5) g/dL Globulin (2.1-4.2) g/dL Albumin/Globulin Ratio (1.0-2.2) Lipase (22-51) U/L Nasal Screen MRSA (PCR) (NEGATIVE) Serum Ketones (NEGATIVE) 06/09/19 06/09/19 06/09/19 Range/Units 16:40 16:10 14:38 WBC (4.8-10.8) x10^3/uL RBC (4.70-6.10) 10^6/uL Hgb (14.0-18.0) g/dL Hct (42.0-52.0) % MCV (80.0-94.0) fL MCH (27.0-31.0) pg MCHC (32.0-36.0) g/dL RDW (12.0-15.0) % Plt Count (130-450) 10^3/uL MPV (7.4-11.4) fL Neut # (Auto) (1.5-6.6) 10^3/uL Lymph # (Auto) (1.5-3.5) 10^3/uL Wirt # (Auto) (0.0-1.0) 10^3/uL Eos # (Auto) (0.0-0.7) 10^3/uL Baso # (Auto) (0.0-0.1) 10^3/uL Absolute Nucleated RBC x10^3/uL Nucleated RBC % /100WBC VBG pH (7.31-7.41) VBG pCO2 (41-51) mmHg VBG pO2 (25-47) mmHg VBG HCO3 (23-28) mmol/L VBG Total CO2 (24-29) mmol/L VBG O2 Saturation (60-80) % VBG Base Excess (-2 - +2) mmol/L Sodium 130 L 129 L (135-145) mmol/L Potassium 4.0 4.3 (3.5-5.0) mmol/L Chloride 93 L 91 L (101-111) mmol/L Carbon Dioxide 22 19 L (21-32) mmol/L Anion Gap 15.0 H 19.0 H (6-13) BUN 53 H 51 H (6-20) mg/dL Creatinine 1.8 H 1.9 H (0.6-1.2) mg/dL Estimated GFR (MDRD) 50 L 47 L (>89) Glucose 404 H 537 H* (70-100) mg/dL POC Whole Bld Glucose 447 H (70 - 100) mg/dL Glycated Hemoglobin (4.6-6.2) % Estim Average Glucose (70-100) Calcium 9.7 9.8 (8.5-10.3) mg/dL Phosphorus (2.5-4.6) mg/dL Magnesium (1.7-2.8) mg/dL Total Bilirubin (0.2-1.0) mg/dL AST (10-42) IU/L ALT (10-60) IU/L Alkaline Phosphatase (42-121) IU/L Total Protein (6.7-8.2) g/dL Albumin (3.2-5.5) g/dL Globulin (2.1-4.2) g/dL Albumin/Globulin Ratio (1.0-2.2) Lipase (22-51) U/L Nasal Screen MRSA (PCR) (NEGATIVE) Serum Ketones (NEGATIVE) 06/09/19 06/09/19 06/09/19 Range/Units 14:36 13:35 12:35 WBC (4.8-10.8) x10^3/uL RBC (4.70-6.10) 10^6/uL Hgb (14.0-18.0) g/dL Hct (42.0-52.0) % MCV (80.0-94.0) fL MCH (27.0-31.0) pg MCHC (32.0-36.0) g/dL RDW (12.0-15.0) % Plt Count (130-450) 10^3/uL MPV (7.4-11.4) fL Neut # (Auto) (1.5-6.6) 10^3/uL Lymph # (Auto) (1.5-3.5) 10^3/uL Wirt # (Auto) (0.0-1.0) 10^3/uL Eos # (Auto) (0.0-0.7) 10^3/uL Baso # (Auto) (0.0-0.1) 10^3/uL Absolute Nucleated RBC x10^3/uL Nucleated RBC % /100WBC VBG pH (7.31-7.41) VBG pCO2 (41-51) mmHg VBG pO2 (25-47) mmHg VBG HCO3 (23-28) mmol/L VBG Total CO2 (24-29) mmol/L VBG O2 Saturation (60-80) % VBG Base Excess (-2 - +2) mmol/L Sodium (135-145) mmol/L Potassium (3.5-5.0) mmol/L Chloride (101-111) mmol/L Carbon Dioxide (21-32) mmol/L Anion Gap (6-13) BUN (6-20) mg/dL Creatinine (0.6-1.2) mg/dL Estimated GFR (MDRD) (>89) Glucose 566 H* 548 H* (70-100) mg/dL POC Whole Bld Glucose (70 - 100) mg/dL Glycated Hemoglobin (4.6-6.2) % Estim Average Glucose (70-100) Calcium (8.5-10.3) mg/dL Phosphorus (2.5-4.6) mg/dL Magnesium (1.7-2.8) mg/dL Total Bilirubin (0.2-1.0) mg/dL AST (10-42) IU/L ALT (10-60) IU/L Alkaline Phosphatase (42-121) IU/L Total Protein (6.7-8.2) g/dL Albumin (3.2-5.5) g/dL Globulin (2.1-4.2) g/dL Albumin/Globulin Ratio (1.0-2.2) Lipase (22-51) U/L Nasal Screen MRSA (PCR) NEGATIVE (NEGATIVE) Serum Ketones (NEGATIVE) 06/09/19 06/09/19 06/09/19 Range/Units 11:35 11:35 10:48 WBC (4.8-10.8) x10^3/uL RBC (4.70-6.10) 10^6/uL Hgb (14.0-18.0) g/dL Hct (42.0-52.0) % MCV (80.0-94.0) fL MCH (27.0-31.0) pg MCHC (32.0-36.0) g/dL RDW (12.0-15.0) % Plt Count (130-450) 10^3/uL MPV (7.4-11.4) fL Neut # (Auto) (1.5-6.6) 10^3/uL Lymph # (Auto) (1.5-3.5) 10^3/uL Wirt # (Auto) (0.0-1.0) 10^3/uL Eos # (Auto) (0.0-0.7) 10^3/uL Baso # (Auto) (0.0-0.1) 10^3/uL Absolute Nucleated RBC x10^3/uL Nucleated RBC % /100WBC VBG pH 7.272 L (7.31-7.41) VBG pCO2 35.1 L (41-51) mmHg VBG pO2 35.2 (25-47) mmHg VBG HCO3 15.8 L (23-28) mmol/L VBG Total CO2 16.9 L (24-29) mmol/L VBG O2 Saturation 65.6 (60-80) % VBG Base Excess -10.0 L (-2 - +2) mmol/L Sodium 130 L (135-145) mmol/L Potassium 4.5 (3.5-5.0) mmol/L Chloride 91 L (101-111) mmol/L Carbon Dioxide 17 L (21-32) mmol/L Anion Gap 22.0 H (6-13) BUN 51 H (6-20) mg/dL Creatinine 1.9 H (0.6-1.2) mg/dL Estimated GFR (MDRD) 47 L (>89) Glucose 704 H* 724 H* (70-100) mg/dL POC Whole Bld Glucose (70 - 100) mg/dL Glycated Hemoglobin (4.6-6.2) % Estim Average Glucose (70-100) Calcium 10.3 (8.5-10.3) mg/dL Phosphorus (2.5-4.6) mg/dL Magnesium 3.4 H (1.7-2.8) mg/dL Total Bilirubin (0.2-1.0) mg/dL AST (10-42) IU/L ALT (10-60) IU/L Alkaline Phosphatase (42-121) IU/L Total Protein (6.7-8.2) g/dL Albumin (3.2-5.5) g/dL Globulin (2.1-4.2) g/dL Albumin/Globulin Ratio (1.0-2.2) Lipase (22-51) U/L Nasal Screen MRSA (PCR) (NEGATIVE) Serum Ketones (NEGATIVE) 06/09/19 06/09/19 06/09/19 Range/Units 09:40 08:36 07:25 WBC (4.8-10.8) x10^3/uL RBC (4.70-6.10) 10^6/uL Hgb (14.0-18.0) g/dL Hct (42.0-52.0) % MCV (80.0-94.0) fL MCH (27.0-31.0) pg MCHC (32.0-36.0) g/dL RDW (12.0-15.0) % Plt Count (130-450) 10^3/uL MPV (7.4-11.4) fL Neut # (Auto) (1.5-6.6) 10^3/uL Lymph # (Auto) (1.5-3.5) 10^3/uL Wirt # (Auto) (0.0-1.0) 10^3/uL Eos # (Auto) (0.0-0.7) 10^3/uL Baso # (Auto) (0.0-0.1) 10^3/uL Absolute Nucleated RBC x10^3/uL Nucleated RBC % /100WBC VBG pH (7.31-7.41) VBG pCO2 (41-51) mmHg VBG pO2 (25-47) mmHg VBG HCO3 (23-28) mmol/L VBG Total CO2 (24-29) mmol/L VBG O2 Saturation (60-80) % VBG Base Excess (-2 - +2) mmol/L Sodium 125 L 125 L (135-145) mmol/L Potassium 5.1 H 6.0 H* (3.5-5.0) mmol/L Chloride 87 L 85 L (101-111) mmol/L Carbon Dioxide 15 L 15 L (21-32) mmol/L Anion Gap 23.0 H 25.0 H (6-13) BUN 52 H 52 H (6-20) mg/dL Creatinine 2.0 H 2.0 H (0.6-1.2) mg/dL Estimated GFR (MDRD) 44 L 44 L (>89) Glucose 828 H* 931 H* (70-100) mg/dL POC Whole Bld Glucose (70 - 100) mg/dL Glycated Hemoglobin 12.7 H (4.6-6.2) % Estim Average Glucose 318 H (70-100) Calcium 10.0 10.5 H (8.5-10.3) mg/dL Phosphorus (2.5-4.6) mg/dL Magnesium 3.5 H 3.1 H (1.7-2.8) mg/dL Total Bilirubin (0.2-1.0) mg/dL AST (10-42) IU/L ALT (10-60) IU/L Alkaline Phosphatase (42-121) IU/L Total Protein (6.7-8.2) g/dL Albumin (3.2-5.5) g/dL Globulin (2.1-4.2) g/dL Albumin/Globulin Ratio (1.0-2.2) Lipase (22-51) U/L Nasal Screen MRSA (PCR) (NEGATIVE) Serum Ketones (NEGATIVE) 06/09/19 Range/Units 07:25 WBC (4.8-10.8) x10^3/uL RBC (4.70-6.10) 10^6/uL Hgb (14.0-18.0) g/dL Hct (42.0-52.0) % MCV (80.0-94.0) fL MCH (27.0-31.0) pg MCHC (32.0-36.0) g/dL RDW (12.0-15.0) % Plt Count (130-450) 10^3/uL MPV (7.4-11.4) fL Neut # (Auto) (1.5-6.6) 10^3/uL Lymph # (Auto) (1.5-3.5) 10^3/uL Wirt # (Auto) (0.0-1.0) 10^3/uL Eos # (Auto) (0.0-0.7) 10^3/uL Baso # (Auto) (0.0-0.1) 10^3/uL Absolute Nucleated RBC x10^3/uL Nucleated RBC % /100WBC VBG pH (7.31-7.41) VBG pCO2 (41-51) mmHg VBG pO2 (25-47) mmHg VBG HCO3 (23-28) mmol/L VBG Total CO2 (24-29) mmol/L VBG O2 Saturation (60-80) % VBG Base Excess (-2 - +2) mmol/L Sodium 121 L (135-145) mmol/L Potassium 5.9 H (3.5-5.0) mmol/L Chloride 82 L (101-111) mmol/L Carbon Dioxide 15 L (21-32) mmol/L Anion Gap 24.0 H (6-13) BUN 54 H (6-20) mg/dL Creatinine 2.0 H (0.6-1.2) mg/dL Estimated GFR (MDRD) 44 L (>89) Glucose 982 H* (70-100) mg/dL POC Whole Bld Glucose (70 - 100) mg/dL Glycated Hemoglobin (4.6-6.2) % Estim Average Glucose (70-100) Calcium 10.2 (8.5-10.3) mg/dL Phosphorus (2.5-4.6) mg/dL Magnesium (1.7-2.8) mg/dL Total Bilirubin 1.8 H (0.2-1.0) mg/dL AST 16 (10-42) IU/L ALT 42 (10-60) IU/L Alkaline Phosphatase 79 (42-121) IU/L Total Protein 8.9 H (6.7-8.2) g/dL Albumin 4.8 (3.2-5.5) g/dL Globulin 4.1 (2.1-4.2) g/dL Albumin/Globulin Ratio 1.2 (1.0-2.2) Lipase 56 H (22-51) U/L Nasal Screen MRSA (PCR) (NEGATIVE) Serum Ketones (NEGATIVE) Assessment/Plan - Problem List (1) Diabetic ketoacidosis Impression: Has almost resolved as of this am. Presented for blurred vision and weakness along with progressively worsening polydipsia and polyuria. Blood glucose on arrival was 982 and he is down to 132 this morning. His VBG resulted as follows: pH: 7.27, pCO2: 35.1, HCO3: 15.8. Was started on treatment for DKA. This morning his pH 7.35, PCO2 44.8, HCO3 24.3, base excess -1.5 Checking CMP Q4h: anion gap 24 > 22 > 19>13 by 18:39 last night and 9 this am. Hyperkalemia to 6 and is 3.4 this am. An EKG was checked because of hyperkalemia and showed sinus tach, R axis deviation and borderline ST elevation. His corrected sodium is now 136 and K is WNL . On DKA protocol and his drip is 12-13 units/hour right now -start lantus 0.2 mg/kg now -stop drip one hour later -add 5 units of short acting before meals -add SS moderate scale of short acting before meals -start low carb diet -continue to monitor electrolyte and supplement Qualifiers: Diabetes mellitus type: type 2 Diabetes mellitus complication detail: without coma Qualified Code(s): E11.10 - Type 2 diabetes mellitus with ketoacidosis without coma (2) Newly diagnosed diabetes Conclusion/Plan: AIC on admit was 12.7%. His mother has DM II as well. His was hoping that he would be able to eventually take pills to control his sugar, but given his obesity along with such a high A1C, he is unfortunately not a candidate. His feels overwhelmed about the new diagnosis, but the pt doesn't seemed to be phased by this. Reassured both the patient and the that they will receive diabetic education before discharging. -Transitioned to short- and long- term injections once stable and off gtt -Diabetic education (3) Acute kidney injury Conclusion/Plan: Secondary to dehydration and DKA. BUN/creatinine: 54/2 > 51/1.9 > 5.1/1.9>39/1.2 this am. Receiving aggressive hydration. -Continue IVF -BMP BID (4) Hypertension Conclusion/Plan: Takes Lisinopril/HCTZ at home. Holding now due to ANTOLIN -Will resume lisinopril without HCTZ for now. Qualifiers: Hypertension type: essential hypertension Qualified Code(s): I10 - Essential (primary) hypertension (5) Hyperlipidemia Conclusion/Plan: Was taking Atorvastatin up until a few weeks ago. He stopped because it was making his skin dry. His ASCVD risk is now especially high with his new dx of DM. Will check lipid panel and have him f/u w/ PCP after D/C -Check lipid panel when sugar is controlled Qualifiers: Hyperlipidemia type: unspecified Qualified Code(s): E78.5 - Hyperlipidemia, unspecified (6) Personal history of osteoarthritis Conclusion/Plan: Takes Indomethacin at home. Holding for now. -Continue PRN Oxy and APAP
[2019-06-10] MEDS: INSULIN GLARGINE 300 UNIT/3 ML PEN SUBQ SCH (08:31)
[2019-06-10] MEDS: ENOXAPARIN 40 MG/0.4 ML SYRINGE SUBQ SCH (08:36)
[2019-06-10] MEDS: SODIUM CHLORIDE FLUSH 0.9% 10 ML SYRINGE IVP SCH ×2 (08:36→17:39)
[2019-06-10] MEDS: LISINOPRIL 20 MG TABLET PO SCH (10:02)
[2019-06-10] MEDS ORDERED: WITCH HAZEL/GLYCERIN 1 PAD TOP PRN (10:31)
[2019-06-10] MEDS: POLYETHYLENE GLYCOL 3350 17 GM PACKET PO SCH (11:43)
[2019-06-10] MEDS: DOCUSATE SODIUM 250 MG CAPSULE PO SCH (11:43)
[2019-06-10] MEDS: INSULIN ASPART 300 UNIT/3 ML PEN SUBQ SCH ×5 (11:43→21:16)
[2019-06-10] MEDS ORDERED: INSULIN ASPART 300 UNIT/3 ML PEN SUBQ SCH (12:00)
[2019-06-10] MEDS ORDERED: INSULIN ASPART 300 UNIT/3 ML PEN SUBQ ONE (17:03)
[2019-06-10] MEDS: LIDOCAINE VISCOUS 2% 15 ML UDC MM PRN (18:30)
[2019-06-10] MEDS ORDERED: INSULIN GLARGINE 300 UNIT/3 ML PEN SUBQ SCH (21:00)
[2019-06-11] MEDS: DEXTROSE 5%-0.45% NACL 1,000 ML IV SCH ×2 (02:25→09:51)
[2019-06-11] MEDS: SODIUM CHLORIDE 0.9% 1,000 ML IV SCH ×2 (02:25→09:51)
[2019-06-11] MEDS: SODIUM CHLORIDE FLUSH 0.9% 10 ML SYRINGE IVP SCH ×3 (02:25→19:09)
[2019-06-11] MEDS: SODIUM CHLORIDE FLUSH 0.9% 10 ML SYRINGE IVP PRN (05:10)
[2019-06-11 05:35] LABS: VBG BASE EXCESS -1.6 mmol/L (-2 - +2); VBG PCO2 43.8 mmHg (41-51); VBG PH 7.357 (7.31-7.41); VBG PO2 65.3 mmHg (25-47); VBG TOTAL CO2 25.4 mmol/L (24-29)
[2019-06-11 05:46] LABS: ALBUMIN 3.4 g/dL (3.2-5.5); CREATININE 1.1 mg/dL (0.6-1.2); MAGNESIUM 2.2 mg/dL (1.7-2.8); PHOSPHORUS 3.4 mg/dL (2.5-4.6)
[2019-06-11] MEDS: INSULIN GLARGINE 300 UNIT/3 ML PEN SUBQ SCH (08:33)
[2019-06-11] MEDS: INSULIN ASPART 300 UNIT/3 ML PEN SUBQ SCH ×7 (08:33→21:12)
[2019-06-11] MEDS: POLYETHYLENE GLYCOL 3350 17 GM PACKET PO SCH (08:44)
[2019-06-11] MEDS: LISINOPRIL 20 MG TABLET PO SCH (08:47)
[2019-06-11] MEDS: DOCUSATE SODIUM 250 MG CAPSULE PO SCH (08:48)
[2019-06-11] MEDS: ENOXAPARIN 40 MG/0.4 ML SYRINGE SUBQ SCH (09:47)
[2019-06-11] MEDS: LIDOCAINE VISCOUS 2% 15 ML UDC MM PRN ×2 (09:53→14:47)
--- NOTE | 2019-06-11 12:51 | PROVIDER PROGRESS NOTE ---
Assessment/Plan - Problem List (1) Newly diagnosed diabetes Assessment/Plan: His requirements for Lantus and mealtime Insulin and ss Insulin are increasing. Glu still in 300's. Will transfer out of ICU Awaiting DM teaching. He was offered to be followed in that [facility] DM clinic, but says he has an appointment this Fri with the [facility] clinic DM nurse. He will need new supplies and prescriptions at [facility]. I discussed all the above and gave the patient and a chart of Moder-High Correction Insulin that he will be discharged on, to start to review. Poss [facility] tomorrow (2) Hypertension Assessment/Plan: His BP meds are being resumed, as iv fluids off (3) Hyperlipidemia Assessment/Plan: Cholesterol meds resumed (4) Diabetic ketoacidosis Assessment/Plan: Resolved. Off Insulin drip (5) Acute kidney injury Assessment/Plan: Resolved - Current Meds Current Meds: Current Medications Generic Name Dose Route Start Last Admin Trade Name Freq PRN Reason Stop Dose Admin Acetaminophen 650 mg 06/09/19 08:24 06/11/19 08:46 Tylenol PO 650 mg Q4HR PRN Administration Pain 1 to 4 Docusate Sodium 250 - 500 mg 06/10/19 11:00 06/11/19 08:48 Colace 250mg Capsule PO 250 mg DAILY DAISY Administration Enoxaparin Sodium 40 mg 06/09/19 12:00 06/11/19 09:47 Lovenox SUBQ 40 mg DAILY DAISY Administration Heparin Sodium (Beef Lung) 30 - 50 unit 06/10/19 16:48 06/11/19 05:10 IVP 50 unit PRN PRN Administration Central Line Protocol (<24 hr) Dextrose/Sodium Chloride 1,000 mls @ 125 mls/hr 06/09/19 09:00 06/11/19 09:51 D5.45ns IV Not Given .Q8H DAISY Sodium Chloride 1,000 mls @ 125 mls/hr 06/09/19 09:00 06/11/19 09:51 Normal Saline 0.9% IV Not Given .Q8H DAISY Insulin Aspart 5 unit 06/10/19 12:00 06/11/19 12:35 Novolog SUBQ 5 unit TIDWM DAISY Administration Protocol Insulin Aspart 3 - 11 unit 06/10/19 21:00 06/11/19 12:36 Novolog SUBQ 11 unit 0800,1200,1700,2100 DAISY Administration Protocol Insulin Glargine 30 unit 06/10/19 08:09 06/11/19 08:33 Lantus Solostar SUBQ 30 unit QDBREAKFAST DAISY Administration Insulin Glargine 20 unit 06/10/19 21:00 06/10/19 21:17 Lantus Solostar SUBQ 20 unit QPM DAISY Administration Lidocaine HCl 5 ml 06/10/19 16:50 06/11/19 09:53 Xylocaine Viscous 2% MM 5 ml Q4H PRN Administration Hemorrhoids Lisinopril 20 mg 06/10/19 09:00 06/11/19 08:47 Zestril PO 20 mg DAILY DAISY Administration Ondansetron HCl 4 mg 06/09/19 08:24 06/09/19 16:21 Zofran Inj IVP 4 mg Q6HR PRN Administration Nausea / Vomiting Oxycodone HCl 5 mg 06/09/19 08:24 06/11/19 08:47 Roxicodone PO 5 mg Q4HR PRN Administration Pain 5 to 7 Polyethylene Glycol 17 gm 06/10/19 10:00 06/11/19 08:44 Miralax PO 17 gm DAILY DAISY Administration Sodium Chloride 10 ml 06/09/19 08:24 06/10/19 00:35 Normal Saline Flush 0.9% IVP 10 ml PRN PRN Administration NEEDED PER PROVIDER ORDERS Sodium Chloride 10 ml 06/09/19 17:00 06/11/19 12:26 Normal Saline Flush 0.9% IVP Not Given 0100,0900,1700 [facility] Sodium Chloride 20 ml 06/09/19 21:12 06/11/19 05:10 Normal Saline Flush 0.9% IVP 20 ml PRN PRN Administration After Blood Draw Witch Eryn/Glycerin 1 pad 06/10/19 10:31 06/10/19 13:22 Tucks TOP 1 pad PRN PRN Administration ITCHING - Lab Result Fish Bone Diagrams: 06/10/19 05:00 06/11/19 05:10 Subjective - Subjective Patient Reports: Feeling Better, Other ( (at bedside) is nervous about being a new diabetic and what to do if there is a qustion, especially a bout Insulin.) Objective Vital Signs: Vital Signs - 24 hr 06/10/19 06/10/19 06/10/19 13:00 14:00 15:00 Temperature Heart Rate [ 103 H 95 85 Monitoring electrodes] Respiratory 12 20 15 Rate Blood Pressure 97/49 L 98/51 L [Left Brachial artery] Blood Pressure [Right Brachial artery] O2 Saturation 94 100 100 06/10/19 06/10/19 06/10/19 16:00 17:00 18:00 Temperature 36.5 C Heart Rate [ 83 90 93 Monitoring electrodes] Respiratory 20 18 21 Rate Blood Pressure 118/74 124/92 H 88/41 L [Left Brachial artery] Blood Pressure [Right Brachial artery] O2 Saturation 100 98 97 06/10/19 06/10/19 06/10/19 19:00 19:55 20:09 Temperature 36.6 C Heart Rate [ 91 104 H 89 Monitoring electrodes] Respiratory 20 11 L 14 Rate Blood Pressure 136/64 H 133/75 H [Left Brachial artery] Blood Pressure [Right Brachial artery] O2 Saturation 100 06/10/19 06/10/19 06/10/19 21:24 22:00 23:00 Temperature Heart Rate [ 97 91 90 Monitoring electrodes] Respiratory 13 20 22 Rate Blood Pressure [Left Brachial artery] Blood Pressure 122/65 114/48 L 103/52 L [Right Brachial artery] O2 Saturation 06/11/19 06/11/19 06/11/19 00:00 01:00 02:00 Temperature Heart Rate [ 86 85 87 Monitoring electrodes] Respiratory 18 14 15 Rate Blood Pressure [Left Brachial artery] Blood Pressure 106/56 L 127/68 120/75 [Right Brachial artery] O2 Saturation 97 06/11/19 06/11/19 06/11/19 03:00 04:00 05:00 Temperature Heart Rate [ 90 86 91 Monitoring electrodes] Respiratory 18 19 20 Rate Blood Pressure [Left Brachial artery] Blood Pressure 130/67 124/58 L 137/56 H [Right Brachial artery] O2 Saturation 06/11/19 06/11/19 06/11/19 06:00 07:00 08:00 Temperature 37.1 C Heart Rate [ 88 87 91 Monitoring electrodes] Respiratory 14 12 16 Rate Blood Pressure [Left Brachial artery] Blood Pressure 133/70 H 141/74 H 107/91 H [Right Brachial artery] O2 Saturation 100 06/11/19 06/11/19 06/11/19 09:00 10:00 11:00 Temperature Heart Rate [ 94 86 82 Monitoring electrodes] Respiratory 19 14 19 Rate Blood Pressure [Left Brachial artery] Blood Pressure 126/66 136/68 H 110/48 L [Right Brachial artery] O2 Saturation 100 100 100 06/11/19 12:00 Temperature 36.7 C Heart Rate [ 94 Monitoring electrodes] Respiratory 16 Rate Blood Pressure [Left Brachial artery] Blood Pressure 115/82 H [Right Brachial artery] O2 Saturation 100 Oxygen O2 Source Room air I&O (Last 24 Hrs): Intake and Output Totals x24h 06/09/19 06/10/19 06/11/19 23:59 23:59 23:59 Intake Total 3541.993 7133.237 2270 Output Total 2475 1650 1200 Balance 4140.007 6321.237 1070 General: Alert, Oriented x3 HEENT: Mucous membr. moist/pink Neck: Supple Neuro: Alert, Non Focal Cardiovascular: Regular rate Respiratory: No respiratory distress Abdomen: No tenderness Extremities: No edema - Results Results: Laboratory Results WBC 6.6 x10^3/uL (4.8-10.8) 06/10/19 05:00 RBC 4.54 10^6/uL (4.70-6.10) L 06/10/19 05:00 Hgb 12.7 g/dL (14.0-18.0) L 06/10/19 05:00 Hct 38.1 % (42.0-52.0) L 06/10/19 05:00 MCV 83.9 fL (80.0-94.0) 06/10/19 05:00 MCH 28.0 pg (27.0-31.0) 06/10/19 05:00 MCHC 33.3 g/dL (32.0-36.0) 06/10/19 05:00 RDW 12.7 % (12.0-15.0) 06/10/19 05:00 Plt Count 225 10^3/uL (130-450) 06/10/19 05:00 MPV 11.5 fL (7.4-11.4) H 06/10/19 05:00 Neut # (Auto) 3.0 10^3/uL (1.5-6.6) 06/10/19 05:00 Lymph # (Auto) 2.6 10^3/uL (1.5-3.5) 06/10/19 05:00 Lassen # (Auto) 0.7 10^3/uL (0.0-1.0) 06/10/19 05:00 Eos # (Auto) 0.2 10^3/uL (0.0-0.7) 06/10/19 05:00 Baso # (Auto) 0.0 10^3/uL (0.0-0.1) 06/10/19 05:00 Absolute Nucleated RBC 0.00 x10^3/uL 06/10/19 05:00 Nucleated RBC % 0.0 /100WBC 06/10/19 05:00 VBG pH 7.357 (7.31-7.41) 06/11/19 05:10 VBG pCO2 43.8 mmHg (41-51) 06/11/19 05:10 VBG pO2 65.3 mmHg (25-47) H 06/11/19 05:10 VBG HCO3 24.0 mmol/L (23-28) 06/11/19 05:10 VBG Total CO2 25.4 mmol/L (24-29) 06/11/19 05:10 VBG O2 Saturation 92.4 % (60-80) H 06/11/19 05:10 VBG Base Excess -1.6 mmol/L (-2 - +2) 06/11/19 05:10 Sodium 130 mmol/L (135-145) L 06/11/19 05:10 Potassium 3.8 mmol/L (3.5-5.0) 06/11/19 05:10 Chloride 97 mmol/L (101-111) L 06/11/19 05:10 Carbon Dioxide 24 mmol/L (21-32) 06/11/19 05:10 Anion Gap 9.0 (6-13) 06/11/19 05:10 BUN 30 mg/dL (6-20) H 06/11/19 05:10 Creatinine 1.1 mg/dL (0.6-1.2) 06/11/19 05:10 Estimated GFR (MDRD) 88 (>89) L 06/11/19 05:10 Glucose 339 mg/dL (70-100) H 06/11/19 05:10 POC Whole Bld Glucose 330 mg/dL (70 - 100) H 06/11/19 11:34 Glycated Hemoglobin 12.7 % (4.6-6.2) H 06/09/19 07:25 Estim Average Glucose 318 (70-100) H 06/09/19 07:25 Calcium 9.0 mg/dL (8.5-10.3) 06/11/19 05:10 Phosphorus 3.4 mg/dL (2.5-4.6) 06/11/19 05:10 Magnesium 2.2 mg/dL (1.7-2.8) 06/11/19 05:10 Total Bilirubin 1.8 mg/dL (0.2-1.0) H 06/09/19 07:25 AST 16 IU/L (10-42) 06/09/19 07:25 ALT 42 IU/L (10-60) 06/09/19 07:25 Alkaline Phosphatase 79 IU/L (42-121) 06/09/19 07:25 Total Protein 8.9 g/dL (6.7-8.2) H 06/09/19 07:25 Albumin 3.4 g/dL (3.2-5.5) 06/11/19 05:10 Globulin 4.1 g/dL (2.1-4.2) 06/09/19 07:25 Albumin/Globulin Ratio 1.2 (1.0-2.2) 06/09/19 07:25 Lipase 56 U/L (22-51) H 06/09/19 07:25 Urine Color YELLOW 06/09/19 06:35 Urine Clarity CLEAR (CLEAR) 06/09/19 06:35 Urine pH 5.5 PH (5.0-7.5) 06/09/19 06:35 Ur Specific [place] <=1.005 (1.002-1.030) 06/09/19 06:35 Urine Protein NEGATIVE mg/dL (NEGATIVE) 06/09/19 06:35 Urine Glucose (UA) >=1000 mg/dL (NEGATIVE) H 06/09/19 06:35 Urine Ketones 40 mg/dL (NEGATIVE) H 06/09/19 06:35 Urine Occult Blood NEGATIVE (NEGATIVE) 06/09/19 06:35 Urine Nitrite NEGATIVE (NEGATIVE) 06/09/19 06:35 Urine Bilirubin NEGATIVE (NEGATIVE) 06/09/19 06:35 Urine Urobilinogen 0.2 (NORMAL) E.U./dL (NORMAL) 06/09/19 06:35 Ur Leukocyte Esterase NEGATIVE (NEGATIVE) 06/09/19 06:35 Ur Microscopic Review NOT INDICATED 06/09/19 06:35 Urine Culture Comments NOT INDICATED 06/09/19 06:35 Nasal Screen MRSA (PCR) NEGATIVE (NEGATIVE) 06/09/19 14:36 Serum Ketones NEGATIVE (NEGATIVE) 06/10/19 05:00
[2019-06-11] MEDS ORDERED: DEXTROSE 5%-0.45% NACL 1,000 ML IV SCH (12:56)
[2019-06-11] MEDS ORDERED: SODIUM CHLORIDE 0.9% 1,000 ML IV SCH (12:57)
--- NOTE | 2019-06-11 17:10 | Discharge Plan ---
Discharge Plan Problem Reviewed?: Yes Disposition: Home, Self Care Condition: Stable Prescriptions: Blood Sugar Diagnostic [Freestyle Lite Test Strip] 1 each [facility] #100 strip Blood-Glucose Meter [Glucometer] 1 each [facility] #1 each Insulin Aspart [NovoLOG] 7 unit SUBQ TIDWM #2 pen Insulin Aspart [NovoLOG] 3 - 11 unit SUBQ 0800,1200,1700,2100 #2 pen Insulin Glargine [Lantus Solostar] 25 unit SUBQ BID #4 pen Lancets 1 each [facility] #100 each Losartan [Cozaar] 50 mg PO DAILY #30 tablet Pen Needle, Diabetic [Insulin Pen Needle] 1 each [facility] #100 dis.needle Diet: Diabetic Activity Restrictions: Activity as Tolerated Shower Restrictions: No Driving Restrictions: No Instruction Topics: Log Blood Sugar, Hyperglycemia, Hypoglycemia, Blood Sugar Check, Insulin Injected, Insulin Types, Diabetes Carbs, Diabetes Sick Day Plan, Diabetes Activity Tips, Diabetes Low Blood Sugar Ch, Injection Pens Dc Health Concerns: You were admitted with altered mental status which was found to be from dehydration causing kidney injury, in Diabetic Ketoacidosis, and you have newly diagnosed Diabetes. Plan of Treatment: You were in the ICU to treat DKA, get aggressive iv fluids, and start new Diabetic management. Training you for managing was started and new prescriptions ordered. Stop using the blood pressure medication called Losartan-HCTZ, because it was dehydrating you. A new prescription for Losartan (without HCTZ) was ordered. New prescriptions for ALL your medications have been electronically sent to the [facility] pharmacy. There are also a back-up set of paper prescriptions for you, in case you want to take any of them to a non-[facility] pharmacy. Call your Primary Care Provider with any furter questions and for all refills. Care Goals: Diabetic management and follow-up. Assessment: The patient and understand. Additional Instructions or Follow Up instructions: See your PCP and Diabetic nurse at the [facility] clinic as scheduled. Further questions and prescription refill requests will be handled by them. You are also welcome to also come to the Diabetic Clinic here. Follow-Up Care: [facility] - Diabetes Ed No Smoking: If you smoke, Please STOP! Call for help.
[2019-06-11] MEDS ORDERED: GLYCERIN ADULT SUPP PR PRN (19:43)
[2019-06-11] MEDS ORDERED: INSULIN GLARGINE 300 UNIT/3 ML PEN SUBQ SCH (21:00)
[2019-06-12] MEDS: SODIUM CHLORIDE FLUSH 0.9% 10 ML SYRINGE IVP SCH ×2 (04:34→08:44)
[2019-06-12] MEDS: INSULIN ASPART 300 UNIT/3 ML PEN SUBQ SCH ×2 (08:07)
[2019-06-12] MEDS: INSULIN GLARGINE 300 UNIT/3 ML PEN SUBQ SCH (08:08)
[2019-06-12] MEDS: DOCUSATE SODIUM 250 MG CAPSULE PO SCH (08:43)
[2019-06-12] MEDS: POLYETHYLENE GLYCOL 3350 17 GM PACKET PO SCH (08:43)
[2019-06-12] MEDS: ENOXAPARIN 40 MG/0.4 ML SYRINGE SUBQ SCH (08:47)
[2019-06-12] MEDS ORDERED: LISINOPRIL 20 MG TABLET PO SCH (09:00)
[2019-06-12] MEDS ORDERED: TERBINAFINE 250 MG TABLET PO SCH (09:00)
[2019-06-12] MEDS ORDERED: LOSARTAN 50 MG TABLET PO SCH (09:00)
[2019-06-12 12:24] VITALS: BP 150/77
--- NOTE | 2019-06-12 18:46 | DISCHARGE SUMMARY ---
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 He had gone to see his primary doctor on Monday regarding this. Labs were drawn and he has not heard anything back. His symptoms were continuing to worsen, and he began to develop weakness and blurred vision so he decided to come to the ED. On arrival, blood glucose was 982. A VBG was checked and resulted as follows: pH: 7.27, CO2: 35 and HCO3: 15.8. He also had an anion gap of 24, a sodium of 121 and a creatinine of 2. He was admitted for diabetic ketoacidosis from a new diagnosis of diabetes mellitus type 2. - HOSPITAL COURSE Hospital Course: 1) DKA He was admitted to the ICU and started on a DKA protocol with IV insulin drip and frequent glucose, ketone and electrolyte monitoring. Hos A1c was 12.7. He received aggressive IV hydration. When he became more alert after several days, he started to get diabetic education, along with his . His glucoses were running in the 200-300 range on a diabetic diet, Lantus insulin, mealtime insulin and was put on a moderate to high dose aspart insulin correction sliding scale. The patient was advised to see his PCP and he was able to arrange to be seen by the diabetic nurse at the [facility] clinic in 2 days, he said. 2) ANTOLIN His BUN/creatinine improved from 54/2.0 to 18/1.0 at discharge 3) Newly diagnosed DM Patient had multiple visits from our hospital diabetic nurse educator and practiced subcutaneous injections on his own. The also setting on nutrition visits regarding his diet. He was giving several educational handouts regarding management of comorbidities in a diabetic. 4) HTN He was kept on his same blood pressure medications while here 5) Hx hyperlipidemia Although he carries this diagnosis, he was not on home statin medication - ALLERGIES Allergies/Adverse Reactions: Allergies Allergy/AdvReac Type Severity Reaction Status Date / Time No Known Drug Allergies Allergy Verified 06/09/19 06:00 - MEDICATIONS Home Medications: Ambulatory Orders Medication Instructions Recorded Confirmed Terbinafine [Lamisil] 250 mg PO DAILY 06/10/19 06/10/19 Blood Sugar Diagnostic [Freestyle 1 each [facility] #100 strip 06/12/19 Lite Test Strip] Blood-Glucose Meter [Glucometer] 1 each [facility] #1 each 06/12/19 Insulin Aspart [NovoLOG] 3 - 11 unit SUBQ 06/12/19 0800,1200,1700,2100 #2 pen Insulin Aspart [NovoLOG] 7 unit SUBQ TIDWM #2 pen 06/12/19 Insulin Glargine [Lantus Solostar] 25 unit SUBQ BID #4 pen 06/12/19 Lancets 1 each [facility] #100 each 06/12/19 Losartan [Cozaar] 50 mg PO DAILY #30 tablet 06/12/19 Pen Needle, Diabetic [Insulin Pen 1 each [facility] #100 dis.needle 06/12/19 Needle] - PHYSICAL EXAM AT DISCHARGE General Appearance: positive: No acute distress, Alert Eyes Bilateral: positive: Normal inspection, PERRL, EOMI ENT: positive: ENT inspection nml, No signs of dehydration Neck: positive: Nml inspection Respiratory: positive: No respiratory distress Cardiovascular: positive: Regular rate & rhythm, No murmur Abdomen: positive: Non-tender, No distention Skin: positive: Color nml Extremities: positive: No pedal edema Neurologic/Psychiatric: positive: Oriented x3, Other (Grossly normal. sensation not tested) - LABS Result Diagrams: 06/10/19 05:00 06/12/19 04:35 - DIAGNOSTIC IMAGING Diagnostic Imaging Results: Final report reviewed - FOLLOW UP Follow Up: See PCP, Diabetic Nurse specialist JORGE. - TIME SPENT Time Spent in Discharge (Minutes): 60
== END 2019-06-12 12:30 | disposition home or self-care (01) | DRG 638 ==
LOC: ED 05:31 → ICU 08:24 → MS2 06-11 12:05 → UNDODISIN 06-12 12:30
PROVIDERS: ADMIT Specialist; ATTEND Internal Medicine
DX: E11.10 Type 2 diabetes mellitus with ketoacidosis without coma (principal); N17.9 Acute kidney failure, unspecified; E86.0 Dehydration; T50.2X5A Adverse effect of carbonic-anhydrase inhibitors, benzothiadiazides and other diuretics, initial encounter; E87.5 Hyperkalemia; I10 Essential (primary) hypertension; M19.90 Unspecified osteoarthritis, unspecified site; E78.5 Hyperlipidemia, unspecified; E66.9 Obesity, unspecified; Z79.899 Other long term (current) drug therapy; Z83.3 Family history of diabetes mellitus; Z68.37 Body mass index [BMI] 37.0-37.9, adult
CPT/HCPCS: 36415; 36556; 80048; 80053; 81003; 82009; 82040; 82803; 82947; 83036; 83690; 83735; 84100; 84132; 85025; 87150; 93005; 99285; A9270; J1650; J1815; 71045; 81001; 87086

== ENCOUNTER 2020-07-17 09:46 | Outpatient (CLI) | payer OTHER ==
[2020-07-17 10:31] VITALS: BP 133/90
--- NOTE | 2020-07-17 10:31 | SLEEP CARE CONSULTATION ---
Information from patient questionnaire entered by Hoda Burnett. I have reviewed and concur with the information entered by Hoda Burnett. This document represents the service I personally performed and the decisions made by me, Haritha Adame ARNP. History of Present Illness Service Date and Time: 07/17/2020 0946 Reason for Visit: New patient Chief Complaint: reports: Unrefreshed sleep (not completely; most do feel rested), Snoring, Excessive daytime sleepiness, Observed pauses in breathing, Frequent awakenings at night. denies: Fatigue Date of Onset: not sure Usual bedtime: 10:30-11 pm Time it takes to fall asleep: 10-15 minutes Snores at night: Yes Observed to quit breathing while asleep: Yes Sleeps alone due to snoring: No Number of times waking at night: 3 Reasons for waking at night: reports: Snoring, Bathroom. denies: Choking, Gasping for air Toss, Turn, or Twitch while sleeping: No Recalls having dreams: Yes Usually gets out of bed at: 5:55 am; weekends 7 am Feels refreshed in the morning: No Morning headache: Yes (rarely; 1 x a week, gone quickly in morning) Sleepy or fatigued during the day: No Ever fallen asleep while driving: No Takes day naps: Yes (2 times a week; lasts about 15 minutes) Dreams during day naps: No Prior sleep studies: No Additional HPI information: I had the pleasure of seeing KACEY GUZMAN today regarding the possibility of him having a sleep disorder. His current complaint is observed pauses in breathing. has told him he has paused as long as 12 seconds when sleeping. He does snore but his still sleeps in same room. He states sometimes he will not feel rested in the morning but mostly he does. He does wake up frequently at night to use the restroom but has woken himself up snoring. He has a history of hypertension and diabetes. - Parasomnia Symptoms Ever been unable to move upon waking from sleep: No Walks in sleep: No Talks in sleep: No Ever acted out dreams in sleep: No Ever felt weak in the knees when startled or emotional: No Bothered by creepy, crawly, restless sensations in legs: No Problems with memory or concentration: No Subjective Initial Hatch Sleepiness Scale score: 9 (in 2019) Past Medical History Past Medical History: reports: Hypertension, Diabetes, Arthritis. 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 Patient is and lives in [place]. Have you smoked in the past 12 months: No Alcohol use: Yes Alcohol amount and frequency: 1-2 drinks per month Caffeine use: Yes Caffeine amount and frequency: 3 times a week Family History Family history of sleep disordered breathing: No Allergies and Home Medications Drug allergies reviewed: Yes (NKDA) Home medication list reviewed: Yes Allergy and home medication list: Losartan Lantus cholesterol pill Review of Systems Weight gain over past 5 years: 50 Cardiovascular: reports: high blood pressure. denies: irregular heart rate or pulse Gastrointestinal: denies: heartburn Neurological: denies: headaches, head trauma Ear/Nose/Throat: reports: wisdom teeth removed. denies: nasal congestion, sinus problems, dry mouth/throat, injury to nose, tonsillectomy Musculoskeletal: reports: joint pain Immunologic: denies: allergies to food or environment Physical Exam Blood Pressure: 133/90 Cuff size: large Heart Rate: 75 O2 Saturation: 98 Height: 6 ft 5 in Weight: 365 lb Body Mass Index: 43.2 BMI Classification: Morbidly Obese Neck circumference: 19 (inches) Nostrils: patent to airflow Turbinates: swollen Septum: midline Mouth and throat: narrow oropharynx Soft palate: long Uvula: edematous Uvula visualization: 25% Mallampati Class III Tongue: enlarged in size with teeth adrian on lateral edges Tonsils: 1+ Heart: regular rate and rhythm Lungs: clear bilaterally Impression and Plan 1. Suspected Obstructive Sleep Apnea-Hypopnea Syndrome, as suggested by a h istory of loud and irregular snoring, observed cessation of breath while asleep, frequent awakening during the night, unrefreshed sleep, and excessive daytime sleepiness. I reviewed with the patient that a narrow oropharynx and obesity are common predisposing factors for obstructive sleep apnea-hypopnea syndrome. I recommend proceeding to polysomnography to confirm the diagnosis and to assess severity. If the patient has significant sleep disordered breathing, a manual CPAP titration study will also be performed to find the optimal treatment pressure. I informed the patient of what the sleep studies involve and after some discussion, obtained agreement to proceed. The pathophysiology of obstructive sleep apnea-hypopnea syndrome was discussed with the patient and health risks of cardiovascular and cerebrovascular disease if not treated. AAS brochure for obstructive sleep apnea-hypopnea syndrome given and reviewed. Risks of drowsy driving discussed in detail and patient advised to avoid long distance driving and to pull worker at the first sign of drowsiness. Patient agreed to plan. * Schedule polysomnography +- manual CPAP titration study and return in 1-2 weeks after the study to discuss result and initiate therapy. * Avoid long distance driving or driving when feeling sleepy. * Avoid alcohol, sedative and muscle relaxant around bedtime. * Attempt to lose weight. * Review instructions provided by trained office staff on how to prepare for the sleep study. * Return for follow-up after sleep study completed. Visit Type: In Office Provider Statement: I spent 100% of the Face to Face Visit with the patient with greater than 50% spent counseling the patient and coordination of care.
--- OUTSIDE RECORDS SUMMARY | 2020-07-22 01:32 | EXTERNAL MEDICAL SUMMARY RPT | Continuity of Care Document ---
:1975 Demographics Phone Unavailable Preferred Language Unknown Marital Status Unknown Yazidi Affiliation Unknown Race Unknown Ethnic Group Unknown Author Organization [facility] [address] [place] [address] Phone Care Team Providers Name Role Phone CARRILLO Unavailable Unavailable Allergies date description facility ADHESIVE \T\ TAPE [facility] CAT HAIR EXTRACT [facility] CIPROFLOXACIN [facility] CLARITHROMYCIN [facility] DUST MITE EXTRACT [facility] ERYTHROMYCIN [facility] AMOXICILLIN-POT [facility] [place] ALMOND [facility] EGG WHITE [facility] EGG [facility] LATEX [facility] MUSHROOM [facility] SHELLFISH [facility] No Known Drug Allergies [facility] Social History date description facility [id number]
== END 2020-07-17 09:47 | disposition home or self-care (01) ==
LOC: SC 09:46
PROVIDERS: ATTEND Nurse Practitioner Family
DX: R06.83 Snoring (principal); R06.81 Apnea, not elsewhere classified; G47.8 Other sleep disorders; G47.10 Hypersomnia, unspecified; E66.01 Morbid (severe) obesity due to excess calories; Z68.41 Body mass index [BMI] 40.0-44.9, adult
CPT/HCPCS: 99203; 99212

== ENCOUNTER 2020-07-27 13:48 | Outpatient (CLI) | payer OTHER | END 2020-07-27 13:49 | disposition home or self-care (01) | LOC: SC 13:48 | PROVIDERS: ATTEND Nurse Practitioner Family | DX: G47.33 Obstructive sleep apnea (adult) (pediatric) (principal); R09.02 Hypoxemia; E66.9 Obesity, unspecified; Z68.41 Body mass index [BMI] 40.0-44.9, adult | CPT/HCPCS: 95806 ==

== ENCOUNTER 2020-08-06 16:17 | Outpatient (CLI) | payer OTHER ==
--- NOTE | 2020-08-06 16:39 | SLEEP CARE CONSULTATION ---
Information from patient questionnaire entered by Taylor Berry. I have reviewed and concur with the information entered by Taylor Berry. This document represents the service I personally performed and the decisions made by me, Haritha Adame ARNP. History of Present Illness Service Date and Time: 08/06/2020 1617 Initial [place] Sleepiness Scale score: 9 (in 2020) Current [place] Sleepiness Scale score: 10 Additional HPI information: KACEY GUZMAN returns for follow up and results of the recently performed home sleep study. I explained the pathophysiology behind obstructive sleep apnea. We then spent quite a bit of time discussing different treatment options. For mild obstructive sleep apnea, surgery and oral appliance are alternatives to nasal CPAP therapy but in moderate or severe cases, nasal CPAP is the most effective and reliable treatment. Because apnea is primarily in supine position, then positional management therapy could be effective. Methods discussed such as positioning with pillows, using a T-shirt with tennis balls in the back. I reviewed the impact of weight changes on sleep apnea and strongly recommended losing weight. After some discussion, the patient opted to go with the nasal CPAP therapy. Nasal autoCPAP set at [id number] will be ordered with rationale explained. A manual titration study will be ordered if unable to find optimal pressure with office adjustments. I explained how CPAP machine works with sample devices [employer] Dreamstation and [employer] [id number] and what to expect when using the machine. Using CPAP every night in order to get used to it was emphasized. Patient advised to put CPAP mask on before getting into bed so as not to fall asleep without CPAP. To assist acclimation to CPAP use, it could also be used for a short time during day while reading or watching TV. The patient was instructed to call the CPAP supplier to discuss any mechanical problem that may occur. If the mask given is uncomfortable or is difficult to keep on through the night even with adjustment, contact the CPAP supplier as many will replace with another mask style if notified before 30 days. If snoring or perceives is not getting enough air or too much air from the machine, notify this office. AASM patient education PAP tips reviewed and given to patient. Patient counseled not drink alcohol less than 4 hours before bedtime as it can increase snoring and apnea. Patient was cautioned about risks of drowsy driving until sleepiness symptoms resolve. Sleep Study - Results Prior sleep studies: No Polysomnography/Home Sleep Study results: Physician Impression: The quality of the study is good. The length of the study is adequate (> 240 minutes). Please also see the tabulated and graphic data. 1. Obstructive Sleep Apnea-Hypopnea (ICD-10 G47.33), moderate, with an AHI of 26.6/hr and jorge luis SaO2 of 72%. During the study, the patient had 29 apneas (29 obstructive, 0 central, 0 mixed) and 118 hypopneas. The longest episode lasted 70.0 seconds. The respiratory events occurred more frequently during supine sleep (supine AHI was 60.8 and non-supine, 17.64). 2. Hypoxemia (ICD-10 R09.02), moderate, with the lowest oxygen saturation of 72 % and 18.8 minutes with SaO2 under 90%. Baseline oxygen saturation was normal (Average oxygen saturation was 93%). Allergies and Home Medications Drug allergies reviewed: Yes (NKDA) Home medication list reviewed: Yes (no changes) Review of Systems Review of systems same as previous: Yes (no changes) Physical Exam Heart Rate: 80 O2 Saturation: 98 Height: 6 ft 5 in Weight: 368 lb Body Mass Index: 43.6 BMI Classification: Morbidly Obese Impression and Plan 1. Obstructive Sleep Apnea-Hypopnea Syndrome, moderate, with lowest oxygen saturation of 72%. Obviously this is the cause of the patients symptoms of unrefreshed sleep, and excessive daytime sleepiness. Positive pressure therapy could benefit his hypertension and diabetes. As mentioned above, the patient will be started on nasal autoCPAP therapy with pressure set at 4-15 cmH2O. A manual titration study will be completed if unable to find optimal treatment pressure with office adjustments. Compliance guidelines also reviewed. A copy of compliance guidelines will be given for reference at check out. Because the apnea is more severe supine, I instructed to avoid sleeping supine using pillow positioning until able to start CPAP use. * Nasal auto CPAP therapy, pressure at 4-15 cm H2O. * Attempt to lose weight. * Avoid alcohol consumption near bedtime. * Avoid supine sleep until using CPAP. * The patient is again cautioned about driving until sleepiness completely resolves. * Return one month after CPAP obtained. I will assess response to therapy and compliance at that time. Counseling Topics: Weight loss health impact Visit Type: In Office Time Spent with Patient (minutes): 20 Provider Statement: I spent 100% of the Face to Face Visit with the patient with greater than 50% spent counseling the patient and coordination of care.
== END 2020-08-06 16:18 | disposition home or self-care (01) ==
LOC: SC 16:17
PROVIDERS: ATTEND Nurse Practitioner Family
DX: G47.33 Obstructive sleep apnea (adult) (pediatric) (principal); E66.01 Morbid (severe) obesity due to excess calories; Z68.41 Body mass index [BMI] 40.0-44.9, adult
CPT/HCPCS: 99212; 99213

== ENCOUNTER 2020-10-23 08:08 | Outpatient (CLI) | payer OTHER ==
--- NOTE | 2020-10-23 08:33 | SLEEP CARE CONSULTATION ---
Information from patient questionnaire entered by Hoda Burnett. I have reviewed and concur with the information entered by Hoda Burnett. This document represents the service I personally performed and the decisions made by , Haritha Adame ARNP. History of Present Illness Service Date and Time: 10/23/2020 0808 Previous diagnosis: Moderate, Obstructive Sleep Apnea-Hypopnea Syndrome AHI: 26.6 (in 2020) Reason for follow up: first compliance Equipment type: CPAP Equipment obtained from: Other ([facility]; got initial supplies) Mask style: Full face Backup mask available: Yes (other mask) Last cushion change: 1 month Prior sleep studies: Yes Year and Where: 2020 - [facility] Type of Sleep Study: Home sleep study HPI additional information: KACEY GUZMAN was diagnosed to have moderate, AHI 26.6, obstructive sleep apnea- hypopnea syndrome and returned today for CPAP therapy first compliance follow- up. CPAP Compliance Data - Data Reviewed with Patient Average duration of nightly device use: 5 hr 3 min Compliance rate %: 70 Current pressure setting (cmH2O): 4-15 (median 13.4, avg 14.8, max 15.0) Humidity settin Average residual AHI: 0.6 Subjective Patient concerns: reports: dry mouth, nose, throat. denies: aerophagia, mask discomfort, air blowing in eyes, mask leak noise, condensation in mask/hose, nasal congestion, epistaxis, other Observed to snore while using device: No Current pressure setting perceived as: comfortable On therapy, patient: reports: sleeping better, awakening more refreshed, being more awake and alert during the day, more rested overall. denies: drowsiness while driving Initial [place] Sleepiness Scale score: 9 (in 2019) Current [place] Sleepiness Scale score: 10 Allergies and Home Medications Drug allergies reviewed: Yes (NKDA) Home medication list reviewed: Yes (no new meds) Review of Systems Review of systems same as previous: Yes (no changes) Physical Exam Heart Rate: 77 O2 Saturation: 98 Height: 6 ft 5 in Weight: 373 lb Body Mass Index: 44.2 BMI Classification: Morbidly Obese Impression and Plan 1. Obstructive Sleep Apnea-Hypopnea Syndrome, moderate, with fair treatment compliance and excellent apnea control. On CPAP therapy, the patient has better sleep quality and is more rested overall. He has had some mouth dryness but was unsure how to increase the humidity. Oral dryness can be reduced by adjusting humidity setting higher or heated hose lower or by adjusting both settings. Verbal instructions given on how to change humidity and heated hose settings with rationale explaining why to change. He has significant improvement of his sleep apnea and is satisfied with his treatment. I will adjust his pressure to reflect those he is using to 13-15 cmH2O. He voiced understanding and agreement with plan. Patient's apnea severity and rationale for treatment to reduce apnea, improve sleep quality and reduce cardiovascular and cerebrovascular events was reviewed. I also reviewed the benefit of consistent device use of CPAP for hypertension and diabetes. * Change auto CPAP pressure to 13-15 cmH2O * Notify me if snoring with mask or feeling that the pressure is too much or too little * Attempt to lose weight * Call this office if any problems using CPAP * Return for follow up in 1-2 months, or sooner if concerns arise Counseling Topics: Spare mask, Weight loss health impact Visit Type: In Office Time Spent with Patient (minutes): 14 Provider Statement: I spent 100% of the Face to Face Visit with the patient with greater than 50% spent counseling the patient and coordination of care.
== END 2020-10-23 08:09 | disposition home or self-care (01) ==
LOC: SC 08:08
PROVIDERS: ATTEND Nurse Practitioner Family
DX: G47.33 Obstructive sleep apnea (adult) (pediatric) (principal); E66.01 Morbid (severe) obesity due to excess calories; Z68.41 Body mass index [BMI] 40.0-44.9, adult
CPT/HCPCS: 99212

== ENCOUNTER 2020-12-23 07:41 | Outpatient (CLI) | payer OTHER ==
--- NOTE | 2020-12-23 08:14 | SLEEP CARE CONSULTATION ---
Information from patient questionnaire entered by Hoda Burnett. I have reviewed and concur with the information entered by Hoda Burnett. This document represents the service I personally performed and the decisions made by , Haritha Adame ARNP. History of Present Illness Service Date and Time: 12/23/2020 0741 Previous diagnosis: Moderate, Obstructive Sleep Apnea-Hypopnea Syndrome AHI: 26.6 Reason for follow up: other (2 month with pressure change) Equipment type: CPAP Equipment obtained from: Other ([facility]; gettting supplies as needed) Mask style: Full face Backup mask available: Yes (old mask) Last cushion change: 1 month Prior sleep studies: Yes Year and Where: 2020 - [facility] Type of Sleep Study: Home sleep study HPI additional information: KACEY GUZMAN was diagnosed to have moderate, AHI 26.6, obstructive sleep apnea- hypopnea syndrome and returned today for CPAP therapy two month pressure change follow-up. CPAP Compliance Data - Data Reviewed with Patient Average duration of nightly device use: 4 hr 25 min Compliance rate %: 60 (60 days) Current pressure setting (cmH2O): 13-15 Humidity settin Average residual AHI: 0.6 Central apnea: 0.0 Obstructive apnea: 0.0 Subjective Missed days of use due to: reports: other (still getting used to it) Patient concerns: reports: mask discomfort, dry mouth, nose, throat (dry mouth). denies: aerophagia, air blowing in eyes, mask leak noise, condensation in mask/hose, nasal congestion, epistaxis, other Observed to snore while using device: No Current pressure setting perceived as: comfortable On therapy, patient: reports: sleeping better, awakening more refreshed, being more awake and alert during the day, more rested overall. denies: drowsiness while driving Initial [place] Sleepiness Scale score: 9 (in 2020) Current [place] Sleepiness Scale score: 6 Allergies and Home Medications Home medication list reviewed: Yes (no changes) Review of Systems Review of systems same as previous: Yes (no changes) Physical Exam Heart Rate: 88 O2 Saturation: 97 Height: 6 ft 5 in Weight: 363 lb Body Mass Index: 43.0 BMI Classification: Morbidly Obese Impression and Plan 1. Obstructive Sleep Apnea-Hypopnea Syndrome, moderate, with fair treatment compliance and good apnea control. On CPAP therapy, the patient has better sleep quality and is more rested overall. His compliance decreased but he states that on the days that he did not use the CPAP it was just because he is still getting used to the process. He finds himself waking up around the 4-hour dain and will take the mask off so he can sleep more comfortably. He does have a full face mask with a hose coming out the front and is worried about getting tangled up in the hose. I discussed with him changing to a different full face mask set up with a hose at the top of the head when he is eligible for a new set of headgear and he voiced understanding. His current pressure setting and is comfortable and working very well. I will have him follow-up in 3 months for a recheck. I strongly encouraged that he increase days of use with the CPAP. Compliance guidelines reviewed for insurance coverage. Optimal use of CPAP is use of CPAP with all sleep to obtain maximum benefit of treatment. Patient is encouraged to use CPAP with all sleep. Patient's apnea severity and rationale for treatment to reduce apnea, improve sleep quality and reduce cardiovascular and cerebrovascular events was reviewed. I also reviewed the benefit of consistent device use of CPAP for hypertension and diabetes. * Continue auto CPAP pressure at 13-15 cmH2O * Notify me if snoring with mask or feeling that the pressure is too much or too little * Continue to try to lose weight * Call this office if any problems using CPAP * Return for follow up in 3 months, or sooner if concerns arise Counseling Topics: Spare mask, Weight loss health impact Visit Type: In Office Time Spent with Patient (minutes): 17 Provider Statement: I spent 100% of the Face to Face Visit with the patient with greater than 50% spent counseling the patient and coordination of care.
== END 2020-12-23 07:42 | disposition home or self-care (01) ==
LOC: SC 07:41
PROVIDERS: ATTEND Nurse Practitioner Family
DX: G47.33 Obstructive sleep apnea (adult) (pediatric) (principal); E66.01 Morbid (severe) obesity due to excess calories; Z68.41 Body mass index [BMI] 40.0-44.9, adult
CPT/HCPCS: 99212

== ENCOUNTER 2021-03-26 07:51 | Outpatient (CLI) | payer OTHER ==
--- NOTE | 2021-03-26 08:11 | SLEEP CARE CONSULTATION ---
Information from patient questionnaire entered by Hoda Burnett. I have reviewed and concur with the information entered by Hoda Burnett. This document represents the service I personally performed and the decisions made by , Haritha Adame ARNP. History of Present Illness Service Date and Time: 03/26/2021 0751 Previous diagnosis: Moderate, Obstructive Sleep Apnea-Hypopnea Syndrome AHI: 26.6 (in 2020) Reason for follow up: three month Equipment type: CPAP Equipment obtained from: Other ([facility]; getting supplies as needed) Mask style: Full face Backup mask available: Yes (old mask) Last cushion change: 1 month Prior sleep studies: Yes Year and Where: 2020 - [facility] Type of Sleep Study: Home sleep study HPI additional information: KACEY GUZMAN was diagnosed to have moderate, AHI 26.6, obstructive sleep apnea- hypopnea syndrome and returned today for CPAP therapy three month follow-up. CPAP Compliance Data - Data Reviewed with Patient Average duration of nightly device use: 4 hr 38 min Compliance rate %: 82 (90 days) Current pressure setting (cmH2O): 13-15 Humidity settin Average residual AHI: 0.5 Subjective Patient concerns: reports: air blowing in eyes (needs adjustment), dry mouth, nose, throat (not constant, occasional). denies: aerophagia, mask discomfort, mask leak noise, condensation in mask/hose, nasal congestion, epistaxis, other Observed to snore while using device: No Current pressure setting perceived as: comfortable On therapy, patient: reports: sleeping better, awakening more refreshed, being more awake and alert during the day, more rested overall. denies: drowsiness while driving Initial [place] Sleepiness Scale score: 9 (in 2019) Current [place] Sleepiness Scale score: 4 Allergies and Home Medications Home medication list reviewed: Yes (no changes) Review of Systems Review of systems same as previous: Yes (no changes) Physical Exam Heart Rate: 85 O2 Saturation: 96 Height: 6 ft 5 in Weight: 351 lb Weight change since last visit: 12 lb loss Body Mass Index: 41.6 BMI Classification: Morbidly Obese Impression and Plan 1. Obstructive Sleep Apnea-Hypopnea Syndrome, moderate, with good treatment compliance and excellent apnea control. On CPAP therapy, the patient has better sleep quality and is more rested overall. Patient has lost weight. Currently patients BMI is 41.6. 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 He is also trying to eat better food choices. Obesity increases the risk of apnea, CPAP pressure requirements and overall health risks especially cardiovascular and diabetes. Thus patient is advised to continue to lose weight. The patient's CPAP pressure range should accommodate some weight loss. Symptoms to report for additional pressure adjustment discussed. Patient's apnea severity and rationale for treatment to reduce apnea, improve sleep quality and reduce cardiovascular and cerebrovascular events was reviewed. I also reviewed the benefit of consistent device use of CPAP for hypertension and diabetes. * Continue auto CPAP pressure at 13-15 cmH2O * Notify me if snoring with mask or feeling that the pressure is too much or too little * Attempt to lose weight * Call this office if any problems using CPAP * Return for follow up in 6 months, or sooner if concerns arise Counseling Topics: Spare mask, Weight loss health impact Visit Type: In Office Time Spent with Patient (minutes): 13 Provider Statement: I spent 100% of the Face to Face Visit with the patient with greater than 50% spent counseling the patient and coordination of care.
== END 2021-03-26 07:52 | disposition home or self-care (01) ==
LOC: SC 07:51
PROVIDERS: ATTEND Nurse Practitioner Family
DX: G47.33 Obstructive sleep apnea (adult) (pediatric) (principal); E66.01 Morbid (severe) obesity due to excess calories; Z68.41 Body mass index [BMI] 40.0-44.9, adult
CPT/HCPCS: 99212

== ENCOUNTER 2021-09-17 18:12 | Emergency (ER) | payer OTHER ==
[2021-09-17 18:19] VITALS: BP 170/82
--- NOTE | 2021-09-17 18:45 | ED Physician Documentation ---
History of Present Illness - Stated complaint Stated Complaint: MALE /BACK PX - Chief complaint Chief Complaint: Wound - Additonal information Additional information: 46-year-old male presents emergency department for evaluation of 3 days right lower lateral pain at his gluteal cleft. He tells this provider that about 6 years ago he had it drained in an office and was told that it was cerebrospinal fluid because he has a very long spine. Patient reports that he has tenderness when he sits on this. No fevers. No urinary or bowel incontinence. 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 : None HEENT: None Musculoskeletal: Osteoarthritis, Gout (Pt and didn't mention, but found hx in EHR) Derm: None - Past Surgical History Past Surgical History: Yes Ortho: Knee replacement Cardiovascular: Vascular surgery - Present Medications Home Medications: Ambulatory Orders Medication Instructions Recorded Confirmed Terbinafine [Lamisil] 250 mg PO DAILY 06/10/19 06/10/19 Blood Sugar Diagnostic [Freestyle 1 each ACHS #100 strip 06/12/19 Lite Test Strip] Blood-Glucose Meter [Glucometer] 1 each ACHS #1 each 06/12/19 Insulin Aspart [NovoLOG] 3 - 11 unit SUBQ 06/12/19 0800,1200,1700,2100 #2 pen Insulin Aspart [NovoLOG] 7 unit SUBQ TIDWM #2 pen 06/12/19 Insulin Glargine [Lantus Solostar] 25 unit SUBQ BID #4 pen 06/12/19 Lancets 1 each ACHS #100 each 06/12/19 Losartan [Cozaar] 50 mg PO DAILY #30 tablet 06/12/19 Pen Needle, Diabetic [Insulin Pen 1 each ACHS #100 dis.needle 06/12/19 Needle] HYDROcod/ACETAM 5/325 [Bowdon 5/325] 1 tablet PO BID PRN #10 tablet 09/17/21 Sulfamethox/Trimeth 800/160 1 each PO BID #14 tablet 09/17/21 [Bactrim Ds 800/160] - Allergies Allergies/Adverse Reactions: Allergies Allergy/AdvReac Type Severity Reaction Status Date / Time No Known Drug Allergies Allergy Verified 09/17/21 18:19 - Social History Does the pt smoke?: No Smoking Status: Never smoker Does the pt drink ETOH?: No Does the pt have substance abuse?: No - Immunizations Immunizations are current?: Yes - POLST Patient has POLST: No POLST Status: Full Code PD ED PE EXPANDED - Derm Derm: Abscess (2 cm fluctuant fluid collection just right of midline gluteal cleft. Some tenderness but no active drainage.) - Neuro Neuro: Alert and Oriented X 3, CNII-XII intact, Normal gait Results - Vitals Vitals: Vital Signs - 24 hr 09/17/21 18:15 Temperature 35.9 C L Heart Rate 89 Respiratory 16 Rate Blood Pressure 170/82 H O2 Saturation 98 Oxygen O2 Source Room air Procedures - Abscess I&D (location) right gluteal cleft/buttock Preparation: Lidocaine 1% Incision: Incised with scalpel, Purulent drainage, Packed Other: Antibiotic prescribed PD MEDICAL DECISION MAKING - ED course Complexity details: considered differential, d/w patient ED course: 46-year-old male presents emergency department for an abscess/fluid collection just right of his gluteal cleft. Symptoms began about 1 week ago. He noted drainage while working out at the gym today. On exam he did have a 2 cm fluid collection. It was drained at the bedside but not as much drained as I had anticipated. It was packed. He will be started on Bactrim. Advised Epson salt soaks. Emergent worrisome return precautions otherwise discussed. I am prescribing a short course of short-acting opioid pain medication for this patient. 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 I have discussed that the opioids are for short term therapy only, and will not be refilled from the ED. Departure - Departure Disposition: 01 Home, Self Care Clinical Impression: Abscess, gluteal, right Condition: Stable Record reviewed to determine appropriate education?: Yes Instructions: ED Abscess IandD Prescriptions: Sulfamethox/Trimeth 800/160 [Bactrim Ds 800/160] 1 each PO BID #14 tablet HYDROcod/ACETAM 5/325 [Bowdon 5/325] 1 tablet PO BID PRN #10 tablet PRN Reason: Pain Comments: Allen you are seen today in the emergency department for an abscess near your buttock. It sounds like most of it drained while at the gym though we did do an incision and drainage at the bedside and a small amount of purulent fluid did come out. We did place a small amount of shoestring packing within the wound. If it falls out that is okay but I would like it to remain in place for about 24 hours. Please take a warm Epson salt bath to help irrigate and flush the wound as well as reduce inflammation. I sent a prescription for an antibiotic as well as some pain medicine to the [facility] in [place]. In general I would expect with the antibiotics that your pain is improving over the next 48 to 72 hours. If not markedly better, you have increased pain swelling fevers or redness then please return to the ER for second evaluation
== END 2021-09-17 19:28 | disposition home or self-care (01) ==
LOC: ED 18:12
DX: L02.31 Cutaneous abscess of buttock (principal); I10 Essential (primary) hypertension
CPT/HCPCS: 10060

== ENCOUNTER 2021-10-09 20:43 | Emergency (ER) | payer OTHER ==
[2021-10-09 20:54] VITALS: BP 194/84
--- NOTE | 2021-10-09 20:57 | ED Physician Documentation ---
PD HPI SKIN - Stated complaint Stated Complaint: CYST ON REAR END - Chief complaint Chief Complaint: Laceration - History obtained from History obtained from: Patient - History of Present Illness Timing - onset: How many weeks ago (2) Timing - duration: Weeks (2) Timing - details: Gradual onset, Still present Location: Other (tailbone area with swelling/tender and came to ED 2 weeks ago, Dx with pilonidal cyst infected and had incision/drainage and Rx Bactrim abx. He states tender and swelling decreased but has had persistent mild drainage from the wound. Here for recheck.) Quality / character: Painful (just mildly tender still.), Draining. 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 : None HEENT: None Musculoskeletal: Osteoarthritis, Gout (Pt and didn't mention, but found hx in EHR) Derm: None - Past Surgical History Past Surgical History: Yes Ortho: Knee replacement Cardiovascular: Vascular surgery - Present Medications Home Medications: Ambulatory Orders Medication Instructions Recorded Confirmed Terbinafine [Lamisil] 250 mg PO DAILY 06/10/19 06/10/19 Blood Sugar Diagnostic [Freestyle 1 each [facility] #100 strip 06/12/19 Lite Test Strip] Blood-Glucose Meter [Glucometer] 1 each [facility] #1 each 06/12/19 Insulin Aspart [NovoLOG] 3 - 11 unit SUBQ 06/12/19 0800,1200,1700,2100 #2 pen Insulin Aspart [NovoLOG] 7 unit SUBQ TIDWM #2 pen 06/12/19 Insulin Glargine [Lantus Solostar] 25 unit SUBQ BID #4 pen 06/12/19 Lancets 1 each ACHS #100 each 06/12/19 Losartan [Cozaar] 50 mg PO DAILY #30 tablet 06/12/19 Pen Needle, Diabetic [Insulin Pen 1 each [facility] #100 dis.needle 06/12/19 Needle] HYDROcod/ACETAM 5/325 [[place] 5/325] 1 tablet PO BID PRN #10 tablet 09/17/21 Sulfamethox/Trimeth 800/160 1 each PO BID #14 tablet 09/17/21 [Bactrim Ds 800/160] Doxycycline Hyclate 100 mg PO BID 7 Days #14 cap 10/09/21 - Allergies Allergies/Adverse Reactions: Allergies Allergy/AdvReac Type Severity Reaction Status Date / Time No Known Drug Allergies Allergy Verified 10/09/21 20:55 - Social History Does the pt smoke?: No Smoking Status: Never smoker Does the pt drink ETOH?: No Does the pt have substance abuse?: No - Immunizations Immunizations are current?: Yes - POLST Patient has POLST: No POLST Status: Full Code PD ED PE NORMAL - Vitals Vital signs reviewed: Yes - General General: Alert and oriented X 3, No acute distress, Well developed/nourished - Derm Derm: Normal color, Warm and dry, Other (pilonidal area with mild local tenderness right of center, open prior I&D wound, but no redness nor warmth. Palpation around the site caused just few drops of clear fluid out. This was cultured. ) Results - Vitals Vitals: Vital Signs - 24 hr 10/09/21 20:45 Temperature 36.5 C Heart Rate 85 Respiratory 18 Rate Blood Pressure 194/84 H O2 Saturation 100 Oxygen O2 Source Room air - Labs Labs: Microbiology 10/09/21 21:12 Wound Culture - Preliminary Buttock - Right PD MEDICAL DECISION MAKING - ED course Complexity details: considered differential (seems like persistent serous drainage from cyst site. Consider persistent infection and can Rx Doxy pending culture. Referred to Surgery as likely will just need excision of underlying cyst. ), d/w patient Departure - Departure Disposition: 01 Home, Self Care Clinical Impression: Pilonidal cyst without abscess Condition: Stable Record reviewed to determine appropriate education?: Yes Follow-Up: EMMA CARRILLO DO [Primary Care Provider] - Anish Hatfield MD [Provider Admit Priv/Credential] - Prescriptions: Doxycycline Hyclate 100 mg PO BID 7 Days #14 cap Comments: The pilonidal cyst area does not look obviously infected but I would be concerned there may be a mild infection which is causing it to not heal readily. Other consideration would be just the persistent drainage has created a scarred tract that just needs excision. We did do a culture that will result in 2 to 3 days. That will tell us if there is a current infection still. I would go with doxycycline antibiotic twice daily in case of persistent infection. Tylenol or ibuprofen if needed for pains. Continue with your other usual medicines. Subsequently following up with general surgery for excision of the cyst area if this is not healing well and is not infected. I did provide a name of one of the surgeons locally. I transmitted your prescription to [facility] pharmacy. Discharge Date/Time: 10/09/21 21:33
[2021-10-09] MEDS ORDERED: DOXYCYCLINE 100 MG TABLET PO STA (21:17)
== END 2021-10-09 21:33 | disposition home or self-care (01) ==
LOC: ED 20:43
DX: L05.91 Pilonidal cyst without abscess (principal)
CPT/HCPCS: 87070; 87181; 87205; 99282; 99283; A9270

== ENCOUNTER 2022-04-13 04:46 | Emergency (ER) | payer OTHER ==
[2022-04-13 04:53] VITALS: BP 216/109
[2022-04-13] MEDS ORDERED: KETOROLAC 30 MG/ML VIAL IM STA (05:41)
--- NOTE | 2022-04-13 05:43 | ED Physician Documentation ---
History of Present Illness - Stated complaint Stated Complaint: PAIN IN LOWER BACK - Chief complaint Chief Complaint: Back Pain - History obtained from History obtained from: Patient - Additonal information Additional information: 39-year-old man with history of chronic hypertension, diabetes, presents with left lower back strain over the past couple of days, progressively worsening. Denies urinary symptoms, numbness, weakness. 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 : None HEENT: None Musculoskeletal: Osteoarthritis, Gout (Pt and didn't mention, but found hx in EHR) Derm: None - Past Surgical History Past Surgical History: Yes Ortho: Knee replacement Cardiovascular: Vascular surgery - Present Medications Home Medications: Ambulatory Orders Medication Instructions Recorded Confirmed Terbinafine [Lamisil] 250 mg PO DAILY 06/10/19 06/10/19 Blood Sugar Diagnostic [Freestyle 1 each [facility] #100 strip 06/12/19 Lite Test Strip] Blood-Glucose Meter [Glucometer] 1 each [facility] #1 each 06/12/19 Insulin Aspart [NovoLOG] 3 - 11 unit SUBQ 06/12/19 0800,1200,1700,2100 #2 pen Insulin Aspart [NovoLOG] 7 unit SUBQ TIDWM #2 pen 06/12/19 Insulin Glargine [Lantus Solostar] 25 unit SUBQ BID #4 pen 06/12/19 Lancets 1 each [facility] #100 each 06/12/19 Losartan [Cozaar] 50 mg PO DAILY #30 tablet 06/12/19 Pen Needle, Diabetic [Insulin Pen 1 each [facility] #100 dis.needle 06/12/19 Needle] HYDROcod/ACETAM 5/325 [[place] 5/325] 1 tablet PO BID PRN #10 tablet 09/17/21 Sulfamethox/Trimeth 800/160 1 each PO BID #14 tablet 09/17/21 [Bactrim Ds 800/160] Doxycycline Hyclate 100 mg PO BID 7 Days #14 cap 10/09/21 methocarbamoL [Robaxin] 500 mg PO Q6H #20 tablet 04/13/22 - Allergies Allergies/Adverse Reactions: Allergies Allergy/AdvReac Type Severity Reaction Status Date / Time No Known Drug Allergies Allergy Verified 04/13/22 04:53 - Social History Does the pt smoke?: No Smoking Status: Never smoker Does the pt drink ETOH?: No Does the pt have substance abuse?: No - Immunizations Immunizations are current?: Yes - POLST Patient has POLST: No POLST Status: Full Code PD ED PE NORMAL - Vitals Vital signs reviewed: Yes - General General: Alert and oriented X 3, No acute distress, Well developed/nourished - HEENT HEENT: Atraumatic, PERRL, EOMI - Back Back: No CVA TTP, No spinal TTP, Other (Left lower backup operator to palpation and muscular distribution.) Results - Vitals Vitals: Vital Signs - 24 hr 04/13/22 04:51 Temperature 36.2 C L Heart Rate 74 Respiratory 14 Rate Blood Pressure 216/109 H O2 Saturation 95 Oxygen O2 Source Room air PD MEDICAL DECISION MAKING - ED course ED course: 47yM p/w L lower back strain. symptomatic care discussed. return precautions given. f/u with pmd. Departure - Departure Disposition: 01 Home, Self Care Clinical Impression: Back pain Condition: Good Instructions: ED Low Back Pain Injury Prescriptions: methocarbamoL [Robaxin] 500 mg PO Q6H #20 tablet Comments: You are seen in the emergency department for lower back muscle strain. Please use cool packs alternating with hot packs for 20 minutes every hour, rest and take ibuprofen 600 mg as needed every 6 hours for pain. in addition to this I am sending Robaxin to the [facility] in [place]. This is a muscle relaxer. Do not drive or operate heavy machinery as this can be sedating. Return to the emergency department if you have any new or worsening symptoms or concerns. Follow-up with your primary doctor.
== END 2022-04-13 05:50 | disposition home or self-care (01) ==
LOC: ED 04:46
DX: S39.012A Strain of muscle, fascia and tendon of lower back, initial encounter (principal); X58.XXXA Exposure to other specified factors, initial encounter; I10 Essential (primary) hypertension; E11.9 Type 2 diabetes mellitus without complications; Z79.4 Long term (current) use of insulin
CPT/HCPCS: 96372; 99282; 99283

== ENCOUNTER 2022-05-22 08:49 | Emergency (ER) | payer OTHER ==
[2022-05-22 09:17] VITALS: BP 147/115
--- NOTE | 2022-05-22 10:27 | ED Physician Documentation ---
PD HPI SKIN - Stated complaint Stated Complaint: ITCHY SKIN - Chief complaint Chief Complaint: Allergic Rx - History obtained from History obtained from: Patient - Additional information Additional information: Pt is a 47 yo IDDM presenting for evaluation of rash to various parts of his body since . He has recently seen a hydraulic repairer for eczema. He is using cetaphil soap and lotion but still has clothes washed in scented detergent. He denies new exposures. He recently restarted his insulin. He has tried OTC hydrocortisone. The areas are not worsening but have not significantly improved. 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 HEENT: None Musculoskeletal: Osteoarthritis, Gout (Pt and didn't mention, but found hx in EHR) Derm: None - Past Surgical History Past Surgical History: Yes Ortho: Knee replacement Cardiovascular: Vascular surgery - Present Medications Home Medications: Ambulatory Orders Medication Instructions Recorded Confirmed Terbinafine [Lamisil] 250 mg PO DAILY 06/10/19 06/10/19 Blood Sugar Diagnostic [Freestyle 1 each [facility] #100 strip 06/12/19 Lite Test Strip] Blood-Glucose Meter [Glucometer] 1 each [facility] #1 each 06/12/19 Insulin Aspart [NovoLOG] 3 - 11 unit SUBQ 06/12/19 0800,1200,1700,2100 #2 pen Insulin Aspart [NovoLOG] 7 unit SUBQ TIDWM #2 pen 06/12/19 Insulin Glargine [Lantus Solostar] 25 unit SUBQ BID #4 pen 06/12/19 Lancets 1 each [facility] #100 each 06/12/19 Losartan [Cozaar] 50 mg PO DAILY #30 tablet 06/12/19 Pen Needle, Diabetic [Insulin Pen 1 each [facility] #100 dis.needle 06/12/19 Needle] HYDROcod/ACETAM 5/325 [[place] 5/325] 1 tablet PO BID PRN #10 tablet 09/17/21 Sulfamethox/Trimeth 800/160 1 each PO BID #14 tablet 09/17/21 [Bactrim Ds 800/160] Doxycycline Hyclate 100 mg PO BID 7 Days #14 cap 10/09/21 methocarbamoL [Robaxin] 500 mg PO Q6H #20 tablet 04/13/22 - Allergies Allergies/Adverse Reactions: Allergies Allergy/AdvReac Type Severity Reaction Status Date / Time No Known Drug Allergies Allergy Verified 05/22/22 09:17 - Social History Does the pt smoke?: No Smoking Status: Never smoker Does the pt drink ETOH?: No Does the pt have substance abuse?: No - Immunizations Immunizations are current?: Yes - POLST Patient has POLST: No POLST Status: Full Code PD ED PE NORMAL - General General: Alert and oriented X 3, No acute distress, Well developed/nourished - HEENT HEENT: Atraumatic - Neck Neck: Supple, no meningeal sign - Respiratory Respiratory: No respiratory distress - Derm Derm: Other (Patches of raised erythema to R antecubital; b/l thighs. Reports hands are itchy; Skin is dry and fine lines on dorsum of hands appear white) Results - Vitals Vitals: Vital Signs - 24 hr 05/22/22 09:12 Temperature 37.4 C Heart Rate 82 Respiratory 16 Rate Blood Pressure 147/115 H O2 Saturation 97 Oxygen O2 Source Room air PD MEDICAL DECISION MAKING - ED course ED course: Pt with itchiness to skin and various areas of raised redness. Pt has history of eczema. Skin appears dry and rash could be from eczema. Recommend avoiding any fragranced items and to ensure lotions/soaps are for those with eczema; increased moisturization of skin, and topical steroid BID. Pt advised to follow up with hydraulic repairer. No signs of infection or mucous membrane involvement. Departure - Departure Disposition: 01 Home, Self Care Clinical Impression: Dermatitis Condition: Stable Instructions: ED Dermatitis Atopic Eczema Comments: The exact cause of your rash is unclear but could be related to your underlying eczema. I would recommend making sure you are keeping your skin moisturized, Avoiding any lotions, soaps or detergents with fragrance including laundry detergent and dryer sheets as this may make your eczema flareup. Please look up at labels for lotions or soaps or use those recommended by your hydraulic repairer. You can use Hydrocortisone 1% [id number] twice a day to any areas that are irritated as well as Benadryl for itching. If your symptoms are worsening in any way then consider return to the ER but otherwise I would recommend close follow-up with your hydraulic repairer. Discharge Date/Time: 05/22/22 10:31
== END 2022-05-22 10:31 | disposition home or self-care (01) ==
LOC: ED 08:49
DX: L30.9 Dermatitis, unspecified (principal); I10 Essential (primary) hypertension; E11.9 Type 2 diabetes mellitus without complications; Z79.4 Long term (current) use of insulin
CPT/HCPCS: 99281; 99283

== ENCOUNTER 2022-05-27 08:48 | Outpatient (CLI) | payer OTHER ==
[2022-05-27 09:16] VITALS: BP 142/82
--- NOTE | 2022-05-27 09:16 | SLEEP CARE CONSULTATION ---
Information from patient questionnaire entered by Iglesia Medina. I have reviewed and concur with the information entered by Iglesia Medina. This document represents the service I personally performed and the decisions made by , Haritha Adame ARNP. History of Present Illness Service Date and Time: 05/27/2022 0848 Previous diagnosis: Moderate, Obstructive Sleep Apnea-Hypopnea Syndrome AHI: 26.6 (in 2020) Reason for follow up: annual (LAST SEEN 03/2021) Equipment type: CPAP (RESMED) Equipment obtained from: Other ([facility]; getting supplies as needed) Mask style: Full face Backup mask available: Yes (old mask) Last cushion change: 1 month Prior sleep studies: Yes Year and Where: 2020 - [facility] Type of Sleep Study: Home sleep study HPI additional information: KACEY GUZMAN was diagnosed to have moderate, AHI 26.6, obstructive sleep apnea- hypopnea syndrome and returned today for CPAP therapy annual follow-up. Sleep Study - Results Type of Sleep Study: Home sleep study Prior sleep studies: Yes Year and Where: 2020 - [facility] CPAP Compliance Data - Data Reviewed with Patient Average duration of nightly device use: 4 HRS 55 MIN Compliance rate %: 94 (11/19/21-05/17/22; 175/180 days used) Current pressure setting (cmH2O): 13-15 Average residual AHI: 0.6 Central apnea: 0.0 Obstructive apnea: 0.0 Hypopnea: 0.6 Average large leak: 3.9 lpm Subjective Missed days of use due to: reports: mask issues Patient concerns: reports: dry mouth, nose, throat (occasional). denies: aerophagia, mask discomfort, air blowing in eyes, mask leak noise, condensation in mask/hose, nasal congestion, epistaxis Observed to snore while using device: No Current pressure setting perceived as: comfortable On therapy, patient: reports: sleeping better, awakening more refreshed, being more awake and alert during the day, more rested overall. denies: drowsiness while driving Initial [place] Sleepiness Scale score: 9 (in 2019) Current [place] Sleepiness Scale score: 9 (05/27/2022) Allergies and Home Medications Drug allergies reviewed: Yes (NKDA) Home medication list reviewed: Yes (no changes) Allergy and home medication list: Allergies No Known Drug Allergies Allergy (Verified 05/22/22 09:17) Review of Systems Review of systems same as previous: Yes (no changes) Physical Exam Vital signs obtained and entered by: IGLESIA Limon MA Blood Pressure: 142/82 (LEFT ARM) Cuff size: long Heart Rate: 78 O2 Saturation: 98 Height: 6 ft 5 in Weight: 348 lb Body Mass Index: 41.2 BMI Classification: Morbidly Obese Impression and Plan 1. Obstructive Sleep Apnea-Hypopnea Syndrome, moderate, with good treatment compliance and good apnea control. On CPAP therapy, the patient has better sleep quality and is more rested overall. Patient has significant improvement of their sleep apnea and are satisfied with current CPAP therapy. Patient denies problems with oral dryness, nasal congestion, epistaxis, skin irritation or aerophagia. Patient's apnea severity and rationale for treatment to reduce apnea, improve sleep quality and reduce cardiovascular and cerebrovascular events was reviewed. I also reviewed the benefit of consistent device use of CPAP for hypertension and diabetes. 2. Obesity, unspecified. Currently patients BMI is 41.2. Obesity increases the risk of apnea, CPAP pressure requirements and overall health risks especially cardiovascular and diabetes. Thus patient is advised to lose weight. The p atient's CPAP pressure range should accommodate some weight loss. Symptoms to report for additional pressure adjustment discussed. * Continue auto CPAP pressure at 13-15 cmH2O * Update supplies * Notify me if snoring with mask or feeling that the pressure is too much or too little * Attempt to lose weight * Call this office if any problems using CPAP * Return for follow up in 1 year, or sooner if concerns arise Counseling Topics: Spare mask, Weight loss health impact Visit Type: In Office Time Spent with Patient (minutes): 11 Provider Statement: I spent 100% of the Face to Face Visit with the patient with greater than 50% spent counseling the patient and coordination of care.
== END 2022-05-27 08:49 | disposition home or self-care (01) ==
LOC: SC 08:48
PROVIDERS: ATTEND Nurse Practitioner Family
DX: G47.33 Obstructive sleep apnea (adult) (pediatric) (principal); E66.01 Morbid (severe) obesity due to excess calories; Z68.41 Body mass index [BMI] 40.0-44.9, adult
CPT/HCPCS: 99212